=== PATIENT | male | born 2005 | race Caucasian/White ===

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

== ENCOUNTER 2024-01-20 21:47 | Emergency (ER) | payer BC, SELFPAY ==
[2024-01-20 21:48] VITALS: BP 112/70; PULSE 78; RESP 16; TEMP 35; O2SAT 96; BMI 28.0
--- NOTE | 2024-01-20 22:22 | EKG12_ITS ---
Test Reason : NAUSEA/VOMITING Blood Pressure : / mmHG Vent. Rate : 068 BPM Atrial Rate : 068 BPM P-R Int : 158 ms QRS Dur : 100 ms QT Int : 350 ms P-R-T Axes : 011 086 001 degrees QTc Int : 372 ms Sinus rhythm with marked sinus arrhythmia Otherwise normal ECG Confirmed by Jose Rao ([id number]), department editor HILARIO SAENZ ([id number]) on 01/22/2024 2:20:05 PM Referred By: POLI Confirmed By:Jose Rao
--- NOTE | 2024-01-20 23:18 | EX.ED.DYSGE1 ---
HPI History of Present Illness Chief Complaint: Nausea/Vomiting Informant: patient, family and friend Narrative Narrative: 18-year-old male states he has had 3 bouts daily of loose nonbloody nonmelanotic diarrhea for the past 2 weeks without any other symptoms. Not watery. No recent travel out of the area over the country. No suspicious food intake. Today, for about the latter half of the day, he has had some periumbilical abdominal aching and vomiting occasionally, basically whenever he tries to eat or drink something. Tonight he was vomiting hard, and he got lightheaded and passed out right afterwards. He then retirement came around and lost consciousness again, and then he came around and has felt better ever since he felt prodromal lightheadedness right after vomiting and no other symptoms such as headache, chest pain, dyspnea, severe abdominal pain. He states right now his abdominal pain is not there. Mom states she is a nurse. She checked his pulse after she got to him which was tender 20 minutes after the episode which was witnessed by girlfriend, and she states his pulse was 72 and his systolic blood pressure was in the 130s. [facility] Medical History (Updated 01/21/24 @ 00:[address] Zbigniew Albright MD) Anxiety Bipolar disorder Smoker ADHD History of anxiety History of depression Home Medications ?Medication ?Instructions ?Recorded ?Last Taken ?Type cetirizine 10 mg capsule (Zyrtec) 10 mg PO DAILY PRN allergy symptoms 08/16/17 08/16/17 History \ aripiprazole 5 mg tablet 2.5 mg PO DAILY 04/16/19 Unknown History atomoxetine 40 mg capsule 60 mg PO DAILY 04/16/19 Unknown History fluoxetine 10 mg tablet 20 mg PO DAILY 04/16/19 Unknown History bupropion HCl 100 mg tablet 100 mg PO DAILY 01/20/24 Unknown History divalproex 250 mg tablet,extended 750 mg PO QHS 01/20/24 Unknown History release 24 hr (Depakote ER) dicyclomine 10 mg capsule 20 mg (2 x 10 mg) PO Q6H PRN PRN 01/21/24 Unknown Rx abdominal discomfort #16 CAPSULES ondansetron 8 mg disintegrating 8 mg PO Q8H PRN nausea and 01/21/24 Unknown Rx tablet vomiting #15 tabs Allergy/AdvReac Type Severity Reaction Status Date / Time trimethoprim Allergy Hives Verified 01/20/24 21:47 Social History Smoking Status: Current every day smoker tobacco type: e-cigarettes ROS ROS ED Constitutional Constitutional ED: Denies chills or fever(s) Eyes Eyes: Denies change in vision or diplopia ENT ENT ED: Denies rhinorrhea or sore throat Cardiovascular Cardiovascular: Reports lightheadedness and syncope; Denies chest pain or palpitations Respiratory/Chest Respiratory/Chest: Denies cough or dyspnea Gastrointestinal Gastrointestinal: Reports abdominal pain, diarrhea, nausea and vomiting; Denies hematochezia or melena Genitourinary Genitourinary ED: Denies dysuria or hematuria Musculoskeletal Musculoskeletal: Denies back pain or neck pain Integumentary Denies abscess or rash Neurologic Neurologic: Denies headache(s), paresthesias or weakness Psychiatric Psychiatric: Denies suicidal thoughts EXAM Physical Exam Const Vital Signs: 01/20/24 21:48 Temperature 95 F L Temperature Source Temporal Pulse Rate 78 Respiratory Rate 16 Blood Pressure 112/70 Blood Pressure Mean 84 Pulse Ox 96 Oxygen Delivery Method Room Air Positive well nourished and well developed General Appearance ED: well developed and NAD HEENT Reports moist mucous membranes normocephalic and atraumatic Eyes PERRL and EOMs intact bilaterally Neck full ROM and supple Chest Wall inspection of chest normal and palpation of chest normal Resp normal respiratory effort and clear to auscultation bilaterally Cardio regular rate, regular rhythm and no murmurs Rate: Negative for tachycardic GI non-tender and non-distended GI Narrative: Benign exam Auscultation: normoactive bowel sounds Palpation: soft Back/Spine no CVA tenderness General Back: other FROM Extremity normal to inspection General Extremety ED: Negative for edema, pulses abnormal or tenderness General Extremity: Negative for edema or pulses abnormal Neuro oriented x3, CN's II-XII intact bilaterally and no sensory deficits noted Sensorium / Orientation: awake and alert Motor Exam: strength 5/5 throughout Skin no rashes or lesions noted and no wounds MDM MDM MDM Narrative Medical decision making narrative: I performed an EKG given his syncopal episode, it is normal, but I suspect this was a vasovagal mechanism for syncope based on him vomiting very hard just before this occurred. They are in agreement with that logic. I did some labs and give him some IV fluids and IV Zofran given his recent symptoms. After IV fluids and Zofran and dicyclomine patient is feeling much better is asymptomatic, soda bilirubin is 1.2 with read of his labs are normal. There is no old labs for comparison. Provided a bedside ultrasound, I see no evidence of any cholelithiasis, gallbladder wall thickening, or pericholecystic fluid. Negative sonographic Weathers's. They are comfortable exam. Stable for discharge, he is tolerating oral fluids, will give him a prescription for Zofran and dicyclomine to use as needed, suspect this is viral, we discussed reasons to return to the ER they are comfortable with that plan. Lab Data Attestation: I reviewed the patient's lab results. Labs: Laboratory Results - last 24 hr 01/20/24 23:35 WBC 11.6 H RBC 5.50 Hgb 16.4 Hct 47.6 MCV 86.5 MCH 29.8 MCHC 34.5 RDW Std Deviation 37.2 RDW Coeff of Amanda 11.8 Plt Count 285 MPV 9.6 Immature Gran % (Auto) 0.300 Neut % (Auto) 81.7 H Lymph % (Auto) 10.6 L Overton % (Auto) 5.7 Eos % (Auto) 1.4 Baso % (Auto) 0.3 Absolute Neuts (auto) 9.5 H Absolute Lymphs (auto) 1.23 Nucleated RBC % 0 Sodium 139 Potassium 3.8 Chloride 107 Carbon Dioxide 27.0 Anion Gap 5 BUN 12 Creatinine 1.04 Estim Creat Clear Calc 139.95 Est GFR (MDRD) Af Amer 118 Est GFR (MDRD) Non-Af 98 BUN/Creatinine Ratio 11.5 Glucose 93 Calcium 9.2 Total Bilirubin 1.20 H AST 16 ALT 27 Alkaline Phosphatase 64 Total Protein 7.7 Albumin 4.2 Globulin 3.5 Albumin/Globulin Ratio 1.2 Rhythm Strip Rhythm Strip: Sinus Rhythm Rate: 65 Ectopy: None EKG Initial EKG: Attestation: I personally reviewed and interpreted this EKG as follows: Interpretation: Sinus Rhythm and No Acute Injury Pattern Comments: Normal EKG no AV block. Prior EKG tracings: not available for review Prior: No Prior Discharge Plan Triage Chief Complaint: Nausea/Vomiting ED Provider: Zbigniew Albright Dx/Rx/DC Orders Clinical Impression: Nausea vomiting and diarrhea, Abdominal pain, periumbilic, Vasovagal syncope Instructions: Viral Gastroenteritis, ED Diet Vomiting Diarrhea, ED Fainting, Vagal Reaction Prescriptions: New dicyclomine 10 mg capsule 20 mg PO Q6H PRN PRN (Reason: abdominal discomfort) Qty: 16 0RF ondansetron 8 mg tablet,disintegrating 8 mg PO Q8H PRN (Reason: nausea and vomiting) Qty: 15 0RF No Action Zyrtec 10 MG capsule 10 mg PO DAILY PRN (Reason: allergy symptoms) fluoxetine 10 MG tablet 20 mg PO DAILY Patient Comments: 1/2 TABLET EVERY MORNING FOR 1WK THEN 1 TAB EVERY AM FOR 1 WK THEN 2 TABS EVERY AM atomoxetine 40 MG capsule 60 mg PO DAILY Patient Comments: TAKE 1 CAPSULE BY MOUTH EVERY DAY aripiprazole 5 MG tablet 2.5 mg PO DAILY divalproex [Depakote ER] 250 mg tablet extended release 24 hr 750 mg PO QHS bupropion HCl 100 mg tablet 100 mg PO DAILY Primary Care Provider: Justin Winkler Referrals: Justin Winkler, [Primary Care Provider] - 3-5 Days if not improving Print Language: Upper Sorbian Disposition Disposition: Home, Self Care
[2024-01-20] MEDS: 0.9% Normal Saline (1000mL) 1,000 ML 999 ML IV (23:35)
[2024-01-20] MEDS: Ondansetron 4 MG/2 ML Vial IV (23:39)
[2024-01-20] MEDS: Dicyclomine 10 MG Capsule 20 MG PO (23:39)
[2024-01-20 23:41] LABS: Absolute Lymphocyte Count 1.23 X10^3/uL (0.83-4.51); Absolute Neutrophil Count 9.5 X10^3/uL (2.0-7.7); Basophil# 0.03 X10^3/uL; Basophil% 0.3 % (0-1); Eosinophil# 0.16 X10^3/uL; Eosinophils% 1.4 % (0-5); Hematocrit 47.6 % (40-54); Hemoglobin 16.4 g/dL (13.0-16.5); Lymphocyte # 1.23 X10^3/ul (0.83-4.51); Lymphocyte % 10.6 % (19-41); Mean Corp Hgb Conc 34.5 g/dL (32-36); Mean Corpuscular Hgb 29.8 pg (27.0-32.0); Mean Corpuscular Volume 86.5 fL (80-94); Mean Platelet Vol. 9.6 fl (6.2-12.0); Monocyte# 0.66 X10^3/uL; Monocyte% 5.7 % (0-10); NRBC Flagged by Analyzer 0 % (0-5); Neutrophil % 81.7 % (47-70); Platelet Count 285 K/mm3 (150-450); RBC Distribution Width CV 11.8 % (11.6-14.6); RBC Distribution Width SD 37.2 fl (35.1-43.9); White Blood Count 11.6 K/mm3 (4.4-11.0)
[2024-01-20 23:58] LABS: ALB/GLOB Ratio 1.2 RATIO (0.9-2.4); AST(SGOT) 16 U/L (15-37); Alanine Aminotransfer ALT/SGPT 27 U/L (16-61); Albumin, Serum 4.2 g/dL (3.2-5.0); Alkaline Phosphatase 64 U/L (45-117); Anion Gap 5 (5-15); BUN 12 mg/dL (7-18); BUN/Creat Ratio 11.5 RATIO (10-20); Calcium,Total 9.2 mg/dL (8.5-10.1); Chloride 107 mmol/L (98-107); Creatinine, Serum 1.04 mg/dL (0.70-1.30); EST Glomerular Filtration Rate 98 mL/min (>60); Est Glom Filt Rate - Afr Amer 118 mL/min (>60); Estimated Creatinine Clearance 139.95 ml/min; Globulin 3.5 g/dL (2.2-4.2); Glucose 93 mg/dL (74-106); Potassium 3.8 mmol/L (3.5-5.1); Protein, Total 7.7 g/dL (6.4-8.2); Sodium Level 139 mmol/L (136-145)
== END 2024-01-21 00:41 | disposition home or self-care (01) ==
PROVIDERS: Emergency Provider Emergency Medicine; PCP Student in an Organized Health Care Education/Training Program; Visit Provider Emergency Medicine
DX: R11.2 Nausea with vomiting, unspecified (principal); R55 Syncope and collapse; R19.7 Diarrhea, unspecified; R10.33 Periumbilical pain; F17.290 Nicotine dependence, other tobacco product, uncomplicated; Z79.899 Other long term (current) drug therapy
CPT/HCPCS: 80053; 85025; 93005; 99282; A4216; J2405

== ENCOUNTER → 2024-02-23 | Outpatient (CLI) | payer BC, SELFPAY ==
[2024-02-23 16:35] LABS: Valproic Acid (Depakene) Level 82 ug/mL (50-100)
== END | disposition home or self-care (01) ==
LOC: LABSPEC 15:58
PROVIDERS: PCP Student in an Organized Health Care Education/Training Program; Referring Provider Psychiatry & Neurology Child & Adolescent Psychiatry; Visit Provider Psychiatry & Neurology Child & Adolescent Psychiatry
DX: Z79.899 Other long term (current) drug therapy (principal)
CPT/HCPCS: 80164

== ENCOUNTER 2025-01-02 21:01 | Emergency (ER) | payer BC, SELFPAY ==
[2025-01-02 21:02] VITALS: BP 96/46; PULSE 110; RESP 18; TEMP 36.8; O2SAT 99; BMI 28.6
--- OUTSIDE RECORDS SUMMARY | 2025-01-02 22:21 | XMS RPT_ITS | CCD ---
Author Organization [facility] Care Team Providers Care Cost Clerk Name Role Phone Justin Lowe DO Primary Care Provider [phone] Justin Lowe Primary Care Unavailable Zbigniew Albright Attending Unavailable Annette Mcmullen Attending Unavailable Annette Mcmullen Referring Unavailable Justin Lowe Primary Care Unavailable Justin Lowe DO Primary Care Provider [phone] MAN BELCEHR Attending Unavailable JUSTIN LOWE Primary Care Unavailable Allergies Allergy Classification Reported Allergen(s) Allergy Type Date of Onset Reaction(s) Facility (12 sources) Trimethoprim; Translations: [TRIMETHOPRIM] Drug Allergy 02-23-2006 [facility] Work Phone: (1 source) Trimethoprim Drug Allergy 01-20-2024 [facility] Repository Medications Current Medications Medication Drug Class(es) Dates Sig (Normalized) Sig (Original) buPROPion hydrochloride 100 mg oral tablet (1 source) Aminoketone Start: 01-20-2024 take 1 tablet by mouth once daily buPROPion (WELLBUTRIN) 100 mg tablet Take 100 mg by mouth once daily. 01/20/2024 Active cephalexin 500 mg oral capsule (1 source) Cephalosporin Antibacterial Start: 07-18-2022 End: 07-28-2022 take 1 capsule by mouth three times daily cephALEXin (KEFLEX) 500 mg capsule Indications: Ingrown toenail Take 1 capsule by mouth three times daily for 10 days. 30 capsule 0 07/18/2022 07/28/2022 Active Comment on above: Take 1 capsule by [facility] three times daily for 10 days. Garlic preparation (9 sources) Non-Standardized Food Allergenic Extract GARLIC ORAL Take by mouth. Active GARLIC ORAL Take by mouth. 0 Active Comment on above: Take by mouth. levocetirizine (9 sources) Histamine-1 Receptor Antagonist levocetirizine dihyd rochloride (XYZAL ORAL) Take by mouth. Active levocetirizine d ihydrochloride (XYZAL ORAL) Take by mouth. 0 Active Comment on above: Take by mouth. mupirocin 0.02 mg/mg topical ointment (1 source) RNA Synthetase Inhibitor Antibacterial Start: 07-18-19 End: 07-28-19 23 mupirocin (BACTROBAN) 2 % ointment Indications: Ingrown toenail Apply to affected area three times daily for 10 days. 22 g 0 07/18/2022 07/28/2022 Active Comment on above: Apply to affected ar ea three times daily for 10 days. therapeutic multivitamin tablet (10 sources) Start: 06-29-19 13 take 1 tablet by mouth once daily therapeutic multivitamin tablet Take 1 tablet by mouth once daily. 0 06/29/2012 Active Comment on above: Take 1 tablet by portia th once daily. 24 hr divalproex sodium 500 mg extended release oral tablet (11 sources) Mood Stabilizer, Anti-epileptic Agent Start: 04-19-20 24 take 1 tablet by mouth once daily divalproex ER (DEPAKOTE ER) 250 mg 24 hr tablet Indications: Bipolar affective disorder, remission status unspecified (HCC) Take 1 tablet by mouth once daily. Take with 500 mg tablet 04/19/2024 Active Start: 04-19-2024 take 1 tablet by portia th once daily divalproex ER (DEPAKOTE ER) 500 mg 24 hr tablet Take 1 tablet by mouth once daily. 04/19/2024 Active Start: 04-19-2024 End: 04-19-2024 take 1 tablet by mouth twice daily divalproex ER (DEPAKOTE ER) 500 mg 24 hr tablet Take 1 tablet by mouth two times a day. 04/19/2024 04/19/2024 Discontinued (Adjust Sig - Block E-Cancel) End: 04-19-2024 take 1 tablet by mouth twice daily divalproex ER (DEPAKOTE ER) 250 mg 24 hr tablet Take 250 mg by mouth twice daily. 04/19/2024 Discontinued (Adjust Sig - Block E-Cancel) Comment on above: Take 250 mg by mouth twice daily. Completed/Discontinued Medications Medication Drug Class(es) Dates Sig (Normalized) Sig (Original) ARIPiprazole 5 mg oral tablet (10 sources) Atypical Antipsychotic Start: 9 End: 4 take 7.5 mg by mouth once daily ARIPiprazole (ABILIFY) 5 mg tablet Take 7.5 mg by mouth once daily. 0 10/31/2018 04/19/2024 Discontinued Comment on above: Take 7.5 mg by mouth once daily. atomoxetine 40 mg oral capsule (1 source) Norepinephrine Reuptake Inhibitor Start: 9 End: 1 take 1 capsule by mouth once daily atomoxetine (STRATTERA) 40 mg capsule Take 40 mg by mouth once daily. 0 10/31/2018 01/20/2021 Discontinued (Other) Cetirizine (1 source) Histamine-1 Receptor Antagonist End: 1 CETIRIZINE HCL (ZYRTEC ORAL) Take by mouth. 01/20/2021 Discontinued 24 hr dexmethylphenidate hydrochloride 10 mg extended release oral capsule (1 source) Central Nervous System Stimulant Start: 0 End: 1 take 1 capsule by mouth once daily dexmethylphenidate (FOCALIN XR) 10 mg MP50 Capsule ER Take 1 capsule by mouth once daily. 03/24/2020 01/20/2021 Discontinued FLUoxetine 20 mg oral tablet (1 source) Serotonin Reuptake Inhibitor Start: 9 End: 1 take 1 tablet by mouth once daily FLUoxetine HCl 20 mg tablet Take 20 mg by mouth once daily. 0 10/31/2018 01/20/2021 Discontinued predniSONE 10 mg oral tablet (6 sources) Start: 2 End: 4 predniSONE (DELTASONE) 10 mg tablet Take 4 tabs daily for 3 days, then 2 tabs daily for 3 days, then 1 tab daily for 3 days with food. 21 tablet 01/10/2022 04/19/2024 Discontinued Comment on above: Take 4 tabs daily fo r 3 days, then 2 tabs daily for 3 days, then 1 tab daily for 3 days with food. sertraline 50 mg oral tablet (1 source) Serotonin Reuptake Inhibitor Start: 0 End: 1 take 1 tablet by mouth once daily sertraline (ZOLOFT) 50 mg tablet Take 1 tablet by mouth once daily. 03/24/2020 01/20/2021 Discontinued Problems Active Problems Problem Classification Problem Date Documented Date Episodic/Chronic Allergic reactions (1 source) Contact dermatitis due to poison yuniel; Translations: [Allergic contact dermatitis due to plants, except food] Episodic Attention-deficit, conduct, and disruptive behavior disorders (10 sources) Attention deficit hyperactivity disorder; Translations: [Attention-deficit hyperactivity disorder, unspecified type] Onset: 01-14-2014 01-14-2014 Chronic Disorders usually diagnosed in infancy, childhood, or adolescence (2 sources) Separation anxiety; Translations: [Separation anxiety disorder of childhood] Onset: 04-19-2024 04-19-2024 Chronic Immunizations and screening for infectious disease (3 sources) Patient encounter status; Translations: [Encounter for immunization] Onset: 09-16-2023 Episodic Mood disorders (2 sources) Bipolar disorder; Translations: [Bipolar disorder, unspecified] Onset: 04-19-2024 04-19-2024 Chronic Nausea and vomiting (1 source) Nausea with vomiting, unspecified; Translations: [Nausea with vomiting, unspecified] Onset: 02-08-2024 Episodic Open wounds of extremities (1 source) Open wound of toe; Translations: [Unspecified open wound of unspecified toe(s) without damage to nail, initial encounter] Episodic Open wounds of head; neck; and trunk (2 sources) Laceration without foreign body of oral cavity, initial encounter; Translations: [Laceration without foreign body of oral cavity, initial encounter] Onset: 09-16-2023 Episodic Other non-traumatic joint disorders (1 source) Pain of left wrist; Translations: [Pain in left wrist] 04-23-2021 Episodic Other nutritional; endocrine; and metabolic disorders (1 source) Childhood obesity; Translations: [Obesity, unspecified] Chronic Other skin disorders (1 source) Ingrowing toenail; Translations: [Ingrowing nail] Episodic Other skin disorders (1 source) Ingrowing nail of toe of right foot; Translations: [Ingrowing nail] Episodic Other upper respiratory disease (10 sources) Allergic rhinitis; Translations: [Allergic rhinitis, unspecified] Onset: 02-03-2012 02-03-2012 Chronic Superficial injury; contusion (2 sources) Contusion of other part of head, initial encounter; Translations: [Contusion of other part of head, initial encounter] Onset: 09-16-2023 Episodic Past or Other Problems Problem Classification Problem Date Documented Da te Episodic/Chronic Other lower respiratory disease (10 sources) Cough; Translations: [Cough] Onset: 10-14-2006 10-14-2006 Episodic Other skin disorders (10 sources) Keratosis pilaris; Translations: [Other specified epidermal thickening] Onset: 02-03-2012 02-03-2012 Episodic Results Test Name Value Interpretation Reference Range Facility OV 04-19-2024 [facility] Office Visit (FAMPWS ) NORIS MIDDLETON ([id number]) 3 M Date Time Provider Department 04/19/24 2:40 PM [facility] During your visit today, we recorded the following information about you: Pulse Respiration Blood pressure Weight 65/minute 14/minute 116/63 98 kg Man Belcher APRN.PLASMA 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 04/19/2024 2:56 PM Signed Chief Complaint Patient presents with: Follow Up: Discuss medication HPI Noris Middleton is a 18 year old male who presents here today for Above Complaints.. Patient presents for separation anxiety from his girlfriend. Patient's mom and gf in attendance of appt. Mom reports patient was in [facility] in [place] and since then he does not want to be away at home. Patient refuses to stay anywhere but home and has lost a job because of it. Mom reports job was with his dad and stepdad and even then he would not stay away from home. Will only stay away from home if his gf is with him. Patient reports if he has to be away he freaks out and gets angry and yells. Past medical history, appointments, medications, allergies reviewed. Previous Medical History PAST MEDICAL HISTORY Diagnosis Date ADHD (attention deficit hyperactivity disorder) Colorblindness Generalized anxiety disorder Keratosis pilaris Major depressive disorder Dr. Mcmullen at [facility] Seasonal allergies Previous Surgical History PAST SURGICAL HISTORY Procedure Laterality Date ADENOIDECTOMY PRIMARY Adenoidectomy, PE tube L ear MYRINGOTOMY ASPIRAND/EUSTACHIAN TUBE NFLTJ ANES 08/2006 Myringotomy/tubes TONSILLECTOMY PRIMARY/SECONDARY Family History FAMILY HISTORY Problem Relation Age of Onset Allergies Mother Headache Father migraines other (Other) Father depression Allergies Maternal Grandmother GI Maternal Grandmother other (Other) Maternal Grandmother sarcoidosis Lipids Maternal Grandfather Allergies Maternal Grandfather Diabetes Paternal Grandfather Hypertension Paternal Grandmother Lipids Paternal Grandmother Allergies Maternal Uncle Asthma Other great, great aunt Patient Allergies ALLERGIES Allergen Reactions Trimethoprim Hives Current Medications Current Outpatient Medications on File Prior to Visit Medication Sig buPROPion (WELLBUTRIN) 100 mg tablet Take 100 mg by mouth once daily. divalproex ER (DEPAKOTE ER) 250 mg 24 hr tablet Take 250 mg by mouth twice daily. levocetirizine dihydrochloride (XYZAL ORAL) Take by mouth. GARLIC ORAL Take by mouth. therapeutic multivitamin tablet Take 1 tablet by mouth once daily. predniSONE (DELTASONE) 10 mg tablet Take 4 tabs daily for 3 days, then 2 tabs daily for 3 days, then 1 tab daily for 3 days with food. (Patient not taking: Reported on 07/18/2022) ARIPiprazole (ABILIFY) 5 mg tablet Take 7.5 mg by mouth once daily. (Patient not taking: No sig reported) No current facility-administered medications on file prior to visit. Social History Social History Tobacco Use Smoking status: Never Smokeless tobacco: Never Tobacco comments: step-father smokes outside only. Substance Use Topics Alcohol use: Never Drug use: Never Review of Symptoms REVIEW OF SYSTEMS SEE HPI EXAM: BP 116/63 Pulse 65 Resp 14 Wt 98 kg (216 lb) General Appearance: Well appearing, alert, in no acute distress, well-hydrated, well nourished.. Health Maintenance List Meningococcal B Vaccine: Consider Based On Risk(1 of 2 - Patient Seeks Protection) Never done Depression Screening Never done Anxiety Screening Never done Hepatitis C Screening Never done HIV Screening Never done Influenza Vaccine(1) due on 02/18/2024 Covid-19 Vaccine(2023- season) Never done DTaP,Tdap,Td Vaccine(8 - Td or Tdap) due on 09/15/2033 Hepatitis B Vaccine Completed HPV Vaccine Completed Meningococcal Conjugate Vaccine Completed ASSESSMENT/PLAN: 1. Bipolar affective disorder, remission status unspecified (HCC) - ICD9: 296.80, ICD10: F31.9 (primary diagnosis) - Continue wellbutrin and depakote -Make an appt with psychiatry for med management as pediatric psych will no longer see patient due to age. - DIVALPROEX ER 250 MG TABLET,EXTENDED RELEASE 24 HR 2. Separation anxiety - ICD9: 309.21, ICD10: F93.0 -Make an appt with psychiatry for med management as pediatric psych will no longer see patient due to age. Man Belcher APRN.Man Wise APRN.CNP 04/19/2024 2:54 PM Signed [place] [facility] Medication Management [facility] [address] [place] [address] [facility] [address] [place] [address] [facility] [address] [place] [address] [facility] [address] [place] [address] (more content not included)... Normal [facility] Valproic Acid (Depakene) Lev rony 02-23-2024 VALPROIC ACID 82 ug/mL Normal 50-100 [facility] Comment on above: Performed By: #### L 501.8100 #### [facility] [address] [place] [address], [facility] 12 Lead EKGon 01-20-2024 12 Lead EKG [facility] [address] [place] [address] 12 Lead EKG 01/20/24 2229 MR#: [id number] Acct: [id number] Name: NORIS IMDDLETON Ute Modi Rep #: [id number] : 2005 18 From: Jose Rao MD Attending Dr: Status: DEP ER Ordering Dr: Zbigniew Albright MD Date: 01/20/24 Location: ED Sex: M C Admitted: Test Reason : NAUSEA/VOMITING Blood Pressure : / mmHG Vent. Rate : 068 BPM Atrial Rate : 068 BPM P-R Int : 158 ms QRS Dur : 100 ms QT Int : 350 ms P-R-T Axes : 011 086 001 degrees QTc Int : 372 ms Sinus rhythm with marked sinus arrhythmia Otherwise normal ECG Confirmed by Jose Rao ([id number]), videotape editor HILARIO SAENZ ([id number]) on 01/22/2024 2:20:05 PM Referred By: POLI Confirmed By:Jose Rao 01/22/24 1420 Date Jose Rao MD CC: Dr. Zbigniew Albright MD; Dr. Justin Lowe, DO Signed Normal [facility] CBC W/Diff, Automatedon 08 Absolute Lymph 1.23 X10 3/uL Normal 0.83-4.51 [facility] Comment on above: Performed By: #### L 100.0100, L500.4050 #### [facility] [address] [place], [address] Absolute Neut 9.5 X10 3/uL High 2.0-7.7 [facility] Comment on above: Performed By: #### L 100.0100, L500.4050 #### [facility] [address] [place], [address] Basophils/100 WBC (Bld) 0.3 % Normal 0-1 [facility] Comment on above: Performed By: #### L 100.0100, L500.4050 #### [facility] [address] [place], [address] Eosinophils/100 WBC (Bld) 1.4 % Normal 0-5 [facility] Comment on above: Performed By: #### L 100.0100, L500.4050 #### [facility] [address] [place], [address] Erythrocyte distribution width (RBC) [Ratio] 11.8 % Normal 11.6-14.6 [facility] Comment on above: Performed By: #### L 100.0100, L500.4050 #### [facility] [address] [place], [address] Hematocrit (Bld) [Volume fraction] 47.6 % Normal 40-54 [facility] Comment on above: Performed By: #### L 100.0100, L500.4050 #### [facility] [address] [place], [address] Hemoglobin (Bld) [Mass/Vol] 16.4 g/dL Normal 13.0-16.5 [facility] Comment on above: Performed By: #### L 100.0100, L500.4050 #### [facility] [address] [place], [address] IG% 0.300 Normal 0.0-0.9 [facility] Comment on above: Result Comment: IG% - Immature Granulocytes (promyelocytes, myelocytes and metamyelocytes) > 1% indicates that a LEFT SHIFT is Present. Performed By: #### L 100.0100, L500.4050 #### [facility] [address] [place], [address] Lymphocytes/100 WBC (Bld) 10.6 % Low 19-41 [facility] Comment on above: Performed By: #### L 100.0100, L500.4050 #### [facility] [address] [place], [address] MCH (RBC) [Entitic mass] 29.8 pg Normal 27.0-32.0 [facility] Comment on above: Performed By: #### L 100.0100, L500.4050 #### [facility] [address] [place], [address] MCHC (RBC) [Mass/Vol] 34.5 g/dL Normal 32-36 [facility] Comment on above: Performed By: #### L 100.0100, L500.4050 #### [facility] [address] [place], [address] MCV (RBC) [Entitic vol] 86.5 fL Normal 80-94 [facility] Comment on above: Performed By: #### L 100.0100, L500.4050 #### [facility] [address] [place], [address] Monocytes/100 WBC (Bld) 5.7 % Normal 0-10 [facility] Comment on above: Performed By: #### L 100.0100, L500.4050 #### [facility] [address] [place], [address] Neutrophils/100 WBC (Bld) 81.7 % High 47-70 [facility] Comment on above: Performed By: #### L 100.0100, L500.4050 #### [facility] [address] [place], [address] Nucleated RBC (Bld) [#/Vol] 0 10*3/uL Normal 0-5 [facility] Comment on above: Performed By: #### L 100.0100, L500.4050 #### [facility] [address] [place], [address] Platelet mean volume (Bld) [Entitic vol] 9.6 fL Normal 6.2-12.0 [facility] Comment on above: Performed By: #### L 100.0100, L500.4050 #### [facility] [address] [place], [address] Platelets (Bld) [#/Vol] 285 10*3/uL Normal 150-450 [facility] Comment on above: Performed By: #### L 100.0100, [id number] #### [facility] [address] [place], [address] RBC (Bld) [#/Vol] 5.50 10*6/uL Normal 4.6-6.2 [facility] Comment on above: Performed By: #### L 100.0100, [id number] #### [facility] [address] [place], [address] RDW SD 37.2 fl Normal 35.1-43.9 [facility] Comment on above: Performed By: #### L 100.0100, L500.4050 #### [facility] [address] [place], [address] WBC (Bld) [#/Vol] 11.6 10*3/uL High 4.4-11.0 [facility] Comment on above: Performed By: #### L 100.0100, L500.4050 #### [facility] [address] [place], [address] Comprehensive Metabolic Prof ilon 01-20-2024 Albumin [Mass/Vol] 4.2 g/dL Normal 3.2-5.0 [facility] Comment on above: Performed By: #### L 100.0100, L500.4050 #### [facility] [address] [place], [address] Albumin/Globulin [Mass ratio] 1.2 {ratio} Normal 0.9-2.4 [facility] Comment on above: Performed By: #### L 100.0100, L500.4050 #### [facility] [address] [place], [address] ALK P 64 U/L Normal 45-117 [facility] Comment on above: Performed By: #### L 100.0100, [id number] #### [facility] [address] [place], [address] ALT [Catalytic activity/Vol] 27 U/L Normal 16-61 [facility] Comment on above: Performed By: #### L 100.0100, L500.4050 #### [facility] [address] [place], [address] AST [Catalytic activity/Vol] 16 U/L Normal 15-37 [facility] Comment on above: Performed By: #### L 100.0100, [id number] #### [facility] [address] [place], [address] Bilirubin [Mass/Vol] 1.20 mg/dL High 0.20-1.00 [facility] Comment on above: Result Comment: For patients on eltrombopag therapy, use of Dimension Lester TBIL is not recommended. Performed By: #### L 100.0100, L500.4050 #### [facility] [address] [place], [address] BUN/CRE 11.5 RATIO Normal 10-20 [facility] Comment on above: Performed By: #### L 100.0100, L500.4050 #### [facility] [address] [place], [address] CA,Total 9.2 mg/dL Normal 8.5-10.1 [facility] Comment on above: Performed By: #### L 100.0100, [id number] #### [facility] [address] [place], [address] Chloride [Moles/Vol] 107 mmol/L Normal 98-107 [facility] Comment on above: Performed By: #### L 100.0100, L500.4050 #### [facility] [address] [place], [address] CO2 [Moles/Vol] 27.0 mmol/L Normal 21.0-32.0 [facility] Comment on above: Performed By: #### L 100.0100, L500.4050 #### [facility] [address] [place], [address] Creatinine [Mass/Vol] 1.04 mg/dL Normal 0.70-1.30 [facility] Comment on above: Result Comment: The validity of the calculated GFR GFRAA in patients over 70 years has not been determined. Clinical correlation is essential. Performed By: #### L 100.0100, L500.4050 #### [facility] [address] [place], [address] ECRCL 139.95 ml/min Normal [facility] Comment on above: Performed By: #### L 100.0100, L500.4050 #### [facility] [address] [place], [address] EST GFR - AA 118 mL/min Normal >60 [facility] Comment on above: Result Comment: Afri can [place] GFR Calc Performed By: #### L 100.0100, L500.4050 #### [facility] [address] [place], [address] GAP 5 Normal 5-15 [facility] Comment on above: Performed By: #### L 100.0100, L500.4050 #### [facility] [address] [place], [address] GFR/1.73 sq M.predicted among non-blacks MDRD (S/P/Bld) [Vol rate/Area] 98 mL/min/{1.73_m2} Normal >60 [facility] Comment on above: Result Comment: Non- GFR Calc Performed By: #### L 100.0100, L500.4050 #### [facility] [address] [place], [address] Globulin (S) [Mass/Vol] 3.5 g/dL Normal 2.2-4.2 [facility] Comment on above: Performed By: #### L 100.0100, L500.4050 #### [facility] [address] [place], [address] Glucose [Mass/Vol] 93 mg/dL Normal 74-106 [facility] Comment on above: Performed By: #### L 100.0100, L500.4050 #### [facility] [address] [place], [address] Potassium [Moles/Vol] 3.8 mmol/L Normal 3.5-5.1 [facility] Comment on above: Performed By: #### L 100.0100, L500.4050 #### [facility] [address] [place], [address] Sodium [Moles/Vol] 139 mmol/L Normal 136-145 [facility] Comment on above: Performed By: #### L 100.0100, L500.4050 #### [facility] [address] [place], [address] T PROT 7.7 g/dL Normal 6.4-8.2 [facility] Comment on above: Performed By: #### L 100.0100, L500.4050 #### [facility] [address] [place], [address] Urea nitrogen [Mass/Vol] 12 mg/dL Normal 7-18 [facility] Comment on above: Performed By: #### L 100.0100, L500.4050 #### [facility] [address] [place], [address] Emergency Department Summary on 01-20-2024 Emergency Department Summary [facility] Medical Records Department [address] [place] [place] [address] Emergency Department Summary 01/20/24 MR#: [id number] Acct: [id number] Name: NORIS MIDDLETON Rep #: [id number] : 2005 18 From: Zbigniew Albright MD PCP: Dr. Justin Lowe, DO Status:REG ER Location: ED HPI History of Present Illness Chief Complaint: Nausea/Vomiting Informant: patient, family and friend Narrative Narrative: 18-year-old male states he has had 3 bouts daily of loose nonbloody nonmelanotic diarrhea for the past 2 weeks without any other symptoms. Not watery. No recent travel out of the area over the country. No suspicious food intake. Today, for about the latter half of the day, he has had some periumbilical abdominal aching and vomiting occasionally, basically whenever he tries to eat or drink something. Tonight he was vomiting hard, and he got lightheaded and passed out right afterwards. He then alf came around and lost consciousness again, and then he came around and has felt better ever since he felt prodromal lightheadedness right after vomiting and no other symptoms such as headache, chest pain, dyspnea, severe abdominal pain. He states right now his abdominal pain is not there. Mom states she is a nurse. She checked his pulse after she got to him which was tender 20 minutes after the episode which was witnessed by girlfriend, and she states his pulse was 72 and his systolic blood pressure was in the 130s. [facility] Medical History (Updated 01/21/24 @ 00:[address] Zbigniew Albright MD) Anxiety Bipolar disorder Smoker ADHD History of anxiety History of depression Home Medications ???Medication ???Instructions ???Recorded ???Last Taken ???Type cetirizine 10 mg capsule (Zyrtec) 10 mg PO DAILY PRN allergy symptoms 08/16/17 08/16/17 History aripiprazole 5 mg tablet 2.5 mg PO DAILY 04/16/19 Unknown History atomoxetine 40 mg capsule 60 mg PO DAILY 04/16/19 Unknown History fluoxetine 10 mg tablet 20 mg PO DAILY 04/16/19 Unknown History bupropion HCl 100 mg tablet 100 mg PO DAILY 01/20/24 Unknown History divalproex 250 mg tablet,extended 750 mg PO QHS 01/20/24 Unknown History release 24 hr (Depakote ER) dicyclomine 10 mg capsule 20 mg (2 x 10 mg) PO Q6H PRN PRN 01/21/24 Unknown Rx abdominal discomfort #16 CAPSULES ondansetron 8 mg disintegrating 8 mg PO Q8H PRN nausea and 01/21/24 Unknown Rx tablet vomiting #15 tabs Allergy/AdvReac Type Severity Reaction Status Date / Time trimethoprim Allergy Hives Verified 01/20/24 21:47 Social History Smoking Status: Current every day smoker tobacco type: e-cigarettes ROS ROS ED Constitutional Constitutional ED: Denies chills or fever(s) Eyes Eyes: Denies change in vision or diplopia ENT ENT ED: Denies rhinorrhea or sore throat Cardiovascular Cardiovascular: Reports lightheadedness and syncope; Denies chest pain or palpitations Respiratory/Chest Respiratory/Chest: Denies cough or dyspnea Gastrointestinal Gastrointestinal: Reports abdominal pain, diarrhea, nausea and vomiting; Denies hematochezia or melena Genitourinary Genitourinary ED: Denies dysuria or hematuria Musculoskeletal Musculoskeletal: Denies back pain or neck pain Integumentary Denies abscess or rash Neurologic Neurologic: Denies headache(s), paresthesias or weakness Psychiatric Psychiatric: Denies suicidal thoughts EXAM Physical Exam Const Vital Signs: 01/20/24 21:48 Temperature 95 F L Temperature Source Temporal Pulse Rate 78 Respiratory Rate 16 Blood Pressure 112/70 Blood Pressure Mean 84 Pulse Ox 96 Oxygen Delivery Method Room Air Positive well nourished and well developed General Appearance ED: well developed and NAD HEENT Reports moist mucous membranes normocephalic and atraumatic Eyes PERRL and EOMs intact bilaterally Neck full ROM and supple Chest Wall inspection of chest normal and palpation of chest normal Resp normal respiratory effort and clear to auscultation bilaterally Cardio regular rate, regular rhythm and no murmurs Rate: Negative for tachycardic GI non-tender and non-distended GI Narrative: Benign exam Auscultation: normoactive bowel sounds Palpation: soft Back/Spine no CVA tenderness General Back: other FROM Extremity normal to inspection General Extremety ED: Negative for edema, pulses abnormal or tenderness General Extremity: Negative for edema or pulses abnormal Neuro oriented x3, CN's II-XII intact bilaterally and no sensory deficits noted Sensorium / Orientation: awake and alert Motor Exam: strength 5/5 throughout Skin no rashes or lesions noted and no wounds MDM MDM MDM Narrative Medical decision making narrative: I performed an EKG gi (more content not included)... Normal [facility] CT 3D RECONSTRUCTIONon 09-15 CT 3D RECONSTRUCTION Interpreted By: Joseph Riley, STUDY: CT HEAD WO IV CONTRAST; CT FACIAL BONES WO IV CONTRAST; CT 3D RECONSTRUCTION; 09/16/2023 4:46 pm INDICATION: Signs/Symptoms:assaul t; Signs/Symptoms:batter y. COMPARISON: None. ACCESSION NUMBER(S): [id number]; [id number]; [id number] ORDERING CLINICIAN: JACKIE GALVEZ TECHNIQUE: Axial noncontrast CT images of the head with coronal and sagittal reformatted images. Axial noncontrast CT images of the facial bones with coronal and sagittal reformatted images. 3D facial reconstructions were created on an independent workstation and reviewed. FINDINGS: CT HEAD: BRAIN PARENCHYMA: No acute intraparenchymal hemorrhage or parenchymal evidence of acute large territory ischemic infarct. No mass-effect. Rico-white matter distinction is preserved. VENTRICLES and EXTRA-AXIAL SPACES: No acute extra-axial or intraventricular hemorrhage. No effacement of cerebral sulci. Ventricles and sulci are age-concordant. MASTOIDS: Well-aerated. CALVARIUM: No skull fracture. CT MAXILLOFACIAL SKELETON: FACIAL BONES: No acute facial bone fracture. The bony orbits are intact. ORBITS: The globes, extraocular muscles, and optic nerve sheath complexes are intact. No retrobulbar or subperiosteal hematoma. SOFT TISSUES: There is soft tissue swelling overlying the right aspect of the mandibular body with foci of soft tissue gas as well. PARANASAL SINUSES: No hemorrhage or air-fluid levels within the paranasal sinuses. Mild diffuse mucosal thickening in the ethmoid, maxillary, sphenoid sinuses with small amount of secretions noted in the right maxillary sinus. OTHER FINDINGS: There is a periapical cyst involving the left maxillary lateral incisor. IMPRESSION: CT HEAD: 1. No acute intracranial abnormality or calvarial fracture. CT MAXILLOFACIAL SKELETON: 1. No acute facial bone fracture. 2. Soft tissue swelling and foci of soft tissue gas overlying the body of the right body of the mandible representing contusion. Correlate for penetrating injury. MACRO: None. Signed by: Joseph Riley 09/16/2023 5:27 PM Dictation workstation: [id number] [facility] CT FACIAL BONES WO IV CONTRA STon 09-16-2023 CT FACIAL BONES WO IV CONTRAST Interpreted By: Joseph Riley, STUDY: CT HEAD WO IV CONTRAST; CT FACIAL BONES WO IV CONTRAST; CT 3D RECONSTRUCTION; 09/16/2023 4:46 pm INDICATION: Signs/Symptoms:assaul t; Signs/Symptoms:batter y. COMPARISON: None. ACCESSION NUMBER(S): [id number]; [id number]; [id number] ORDERING CLINICIAN: JACKIE GALVEZ TECHNIQUE: Axial noncontrast CT images of the head with coronal and sagittal reformatted images. Axial noncontrast CT images of the facial bones with coronal and sagittal reformatted images. 3D facial reconstructions were created on an independent workstation and reviewed. FINDINGS: CT HEAD: BRAIN PARENCHYMA: No acute intraparenchymal hemorrhage or parenchymal evidence of acute large territory ischemic infarct. No mass-effect. Rico-white matter distinction is preserved. VENTRICLES and EXTRA-AXIAL SPACES: No acute extra-axial or intraventricular hemorrhage. No effacement of cerebral sulci. Ventricles and sulci are age-concordant. MASTOIDS: Well-aerated. CALVARIUM: No skull fracture. CT MAXILLOFACIAL SKELETON: FACIAL BONES: No acute facial bone fracture. The bony orbits are intact. ORBITS: The globes, extraocular muscles, and optic nerve sheath complexes are intact. No retrobulbar or subperiosteal hematoma. SOFT TISSUES: There is soft tissue swelling overlying the right aspect of the mandibular body with foci of soft tissue gas as well. PARANASAL SINUSES: No hemorrhage or air-fluid levels within the paranasal sinuses. Mild diffuse mucosal thickening in the ethmoid, maxillary, sphenoid sinuses with small amount of secretions noted in the right maxillary sinus. OTHER FINDINGS: There is a periapical cyst involving the left maxillary lateral incisor. IMPRESSION: CT HEAD: 1. No acute intracranial abnormality or calvarial fracture. CT MAXILLOFACIAL SKELETON: 1. No acute facial bone fracture. 2. Soft tissue swelling and foci of soft tissue gas overlying the body of the right body of the mandible representing contusion. Correlate for penetrating injury. MACRO: None. Signed by: Joseph Riley 09/16/2023 5:27 PM Dictation workstation: [id number] [facility] CT HEAD WO IV CONTRASTon CT HEAD WO IV CONTRAST Interpreted By: Joseph Riley, STUDY: CT HEAD WO IV CONTRAST; CT FACIAL BONES WO IV CONTRAST; CT 3D RECONSTRUCTION; 09/16/2023 4:46 pm INDICATION: Signs/Symptoms:assaul t; Signs/Symptoms:batter y. COMPARISON: None. ACCESSION NUMBER(S): [id number]; [id number]; [id number] ORDERING CLINICIAN: JCAKIE GALVEZ TECHNIQUE: Axial noncontrast CT images of the head with coronal and sagittal reformatted images. Axial noncontrast CT images of the facial bones with coronal and sagittal reformatted images. 3D facial reconstructions were created on an independent workstation and reviewed. FINDINGS: CT HEAD: BRAIN PARENCHYMA: No acute intraparenchymal hemorrhage or parenchymal evidence of acute large territory ischemic infarct. No mass-effect. Rico-white matter distinction is preserved. VENTRICLES and EXTRA-AXIAL SPACES: No acute extra-axial or intraventricular hemorrhage. No effacement of cerebral sulci. Ventricles and sulci are age-concordant. MASTOIDS: Well-aerated. CALVARIUM: No skull fracture. CT MAXILLOFACIAL SKELETON: FACIAL BONES: No acute facial bone fracture. The bony orbits are intact. ORBITS: The globes, extraocular muscles, and optic nerve sheath complexes are intact. No retrobulbar or subperiosteal hematoma. SOFT TISSUES: There is soft tissue swelling overlying the right aspect of the mandibular body with foci of soft tissue gas as well. PARANASAL SINUSES: No hemorrhage or air-fluid levels within the paranasal sinuses. Mild diffuse mucosal thickening in the ethmoid, maxillary, sphenoid sinuses with small amount of secretions noted in the right maxillary sinus. OTHER FINDINGS: There is a periapical cyst involving the left maxillary lateral incisor. IMPRESSION: CT HEAD: 1. No acute intracranial abnormality or calvarial fracture. CT MAXILLOFACIAL SKELETON: 1. No acute facial bone fracture. 2. Soft tissue swelling and foci of soft tissue gas overlying the body of the right body of the mandible representing contusion. Correlate for penetrating injury. MACRO: None. Signed by: Joseph Riley 09/16/2023 5:27 PM Dictation workstation: [id number] [facility] Lipid Panel, [place] 05-05-2 021 Cholesterol [Mass/Vol] 155 mg/dL Normal <170 [facility] Reference Lab Comment on above: Performed By: #### L IPB, HBA1C #### [facility] Routine Lab [address] [place], [place] [address] Cholesterol in HDL [Mass/Vol] 33 mg/dL Low >45 [facility] Comment on above: Performed By: #### L IPB, HBA1C #### [facility] Routine Lab [address] [place], [place] [address] Cholesterol in LDL [Mass/Vol] 99 mg/dL Normal <110 [facility] Comment on above: Performed By: #### L IPB, HBA1C #### [facility] Routine Lab [address] [place], [place] [address] Cholesterol in VLDL [Mass/Vol] 23 mg/dL High <18 [facility] Comment on above: Performed By: #### L IPB, HBA1C #### [facility] Routine Lab [address] [place], [place] [address] Cholesterol non HDL [Mass/Vol] 122 mg/dL High <120 [facility] Comment on above: Performed By: #### L IPB, HBA1C #### [facility] Routine Lab [address] [place], [place] [address] LDL:HDL Ratio 3.00 High <2.42 [facility] Comment on above: Performed By: #### L IPB, HBA1C #### [facility] Routine Lab [address] [place], [place] [address] TC:HDL Ratio 4.70 High <3.76 [facility] Comment on above: Performed By: #### L IPB, HBA1C #### [facility] Routine Lab [address] [place], [place] [address] Triglyceride [Mass/Vol] 114 mg/dL High <90 [facility] Comment on above: Performed By: #### L IPB, HBA1C #### [facility] Routine Lab [address] [place], [place] [address] Hemoglobin A1con 05-04-2021 Glucose [Mass/Vol] 91 mg/dL Normal [facility] Reference Lab Comment on above: Performed By: #### L IPB, HBA1C #### [facility] Routine Lab [address] [place], [place] [address] HbA1c (Bld) [Mass fraction] 4.8 % Normal 4.3-5.6 [facility] Lab Comment on above: Performed By: #### L IPB, HBA1C #### [facility] Routine Lab [address], [place] [id number] Lipid Panel, Basicon 021 Fasting Time UN Normal [facility] Lab Comment on above: Performed By: #### L IPB, HBA1C #### [facility] Routine Lab [address], [place] [id number] XR Wrist - left 4 Viewson IMPRESSION: Normal radiographic appearance of the left wrist. 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 DIVISION OF RADIOLOGY * * *Final Report* * * DATE OF EXAM: Apr 23 2021 4:44PM WOX 5272 - XR WRIST 4V PA/LAT/OBL/SCAPH LT / PROCEDURE REASON: Left wrist pain * * * * Physician Interpretation * * * * TECHNIQUE: XR WRIST 4V PA/LAT/OBL/SCAPH LT - EXAM DATE: 04/23/2021 4:44 PM CLINICAL HISTORY: Left wrist pain COMPARISON: None RESULT: There is no fracture. Bone density is normal. Joint spaces are maintained. No soft tissue abnormality. DIVISION OF RADIOLOGY Provider, [facility] - 04/23/2021 * * *Final Report* * * DATE OF EXAM: Apr 23 2021 4:44PM WOX 5272 - XR WRIST 4V PA/LAT/OBL/SCAPH LT / PROCEDURE REASON: Left wrist pain * * * * Physician Interpretation * * * * TECHNIQUE: XR WRIST 4V PA/LAT/OBL/SCAPH LT - EXAM DATE: 04/23/2021 4:44 PM CLINICAL HISTORY: Left wrist pain COMPARISON: None RESULT: There is no fracture. Bone density is normal. Joint spaces are maintained. No soft tissue abnormality. IMPRESSION IMPRESSION: Normal radiographic appearance of the left wrist. 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 DIVISION OF RADIOLOGY * * *Final Report* * * DATE OF EXAM: Mar 30 2020 6:39PM WOX 5271 - XR WRIST 3V PA/LAT/OBL RT / PROCEDURE REASON: Wrist pain, acute, right * * * * Physician Interpretation * * * * TECHNIQUE: XR WRIST 3V PA/LAT/OBL RT - EXAM DATE: 03/30/2020 6:39 PM CLINICAL HISTORY: Wrist pain, acute, right COMPARISON: None FINDINGS: There is soft tissue swelling overlying the wrist. There is no fracture or dislocation or radiopaque foreign body. DIVISION OF RADIOLOGY Provider, Dougie Smith - 03/30/2020 * * *Final Report* * * DATE OF EXAM: Mar 30 2020 6:39PM WOX 5271 - XR WRIST 3V PA/LAT/OBL RT / PROCEDURE REASON: Wrist pain, acute, right * * * * Physician Interpretation * * * * TECHNIQUE: XR WRIST 3V PA/LAT/OBL RT - EXAM DATE: 03/30/2020 6:39 PM CLINICAL HISTORY: Wrist pain, acute, right COMPARISON: None FINDINGS: There is soft tissue swelling overlying the wrist. There is no fracture or dislocation or radiopaque foreign body. 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 Date/Time: Mar 30 2020 6:40P Dictated by : ELGIN LEI MD This examination was interpreted and the report reviewed and electronically signed by: ELGIN LEI MD on Mar 30 2020 6:40PM EST [facility] Radiology Study observation (narrative) [facility] XR Wrist - right PA and Late ral and ObliqueOrdered By: Ccf Provider on 03-30-2020 [facility] Glucose, Fastingon 9 Glucose [Mass/Vol] 73 mg/dL Low 74-99 [facility] Reference Lab Comment on above: Performed By: #### G LF, LIPB #### [facility] Routine Lab [address] [place], [place] [address] Lipid Panel, Basicon 019 Cholesterol [Mass/Vol] 155 mg/dL Normal <170 [facility] Lab Comment on above: Performed By: #### G LF, LIPB #### [facility] Routine Lab [address] [place], [place] [address] Cholesterol in HDL [Mass/Vol] 43 mg/dL Low >45 [facility] Lab Comment on above: Performed By: #### G LF, LIPB #### [facility] Routine Lab [address] [place], [place] [address] Cholesterol in LDL [Mass/Vol] 94 mg/dL Normal <110 [facility] Lab Comment on above: Performed By: #### G LF, LIPB #### [facility] Routine Lab [address] [place], [place] [address] Cholesterol in VLDL [Mass/Vol] 18 mg/dL High <18 [facility] Reference Lab Comment on above: Performed By: #### G LF, LIPB #### [facility] Routine Lab [address] [place], [place] [address] Cholesterol non HDL [Mass/Vol] 112 mg/dL Normal <120 [facility] Reference Lab Comment on above: Performed By: #### G LF, LIPB #### [facility] Routine Lab [address] [place], [place] [address] LDL:HDL Ratio 2.19 Normal <2.42 [facility] Reference Lab Comment on above: Performed By: #### G LF, LIPB #### [facility] Routine Lab [address] [place], [place] [address] TC:HDL Ratio 3.60 Normal <3.76 [facility] Reference Lab Comment on above: Performed By: #### G LF, LIPB #### [facility] Routine Lab [address] [place], [place] [address] Triglyceride [Mass/Vol] 90 mg/dL High <90 [facility] Lab Comment on above: Performed By: #### G LF, LIPB #### [facility] Routine Lab [address] [place], [place] [address] Fasting Time UN Normal [facility] Reference Lab Comment on above: Performed By: #### G LF, LIPB #### [facility] Routine Lab [address] [place], [place] [address] Glucose, Fastingon 9 Glucose [Mass/Vol] 76 mg/dL Normal 74-99 [facility] Reference Lab Comment on above: Performed By: #### G LF, LIPB #### [facility] Routine Lab [address] [place], [place] [address] Lipid Panel, Basicon 019 Cholesterol [Mass/Vol] 167 mg/dL Normal <170 [facility] Lab Comment on above: Performed By: #### G LF, LIPB #### [facility] Routine Lab [address] [place], [place] [address] Cholesterol in HDL [Mass/Vol] 52 mg/dL Normal >45 [facility] Reference Lab Comment on above: Performed By: #### G LF, LIPB #### [facility] Routine Lab [address] [place], [place] [address] Cholesterol in LDL [Mass/Vol] 100 mg/dL Normal <110 [facility] Reference Lab Comment on above: Performed By: #### G LF, LIPB #### [facility] Routine Lab [address] [place], [place] [address] Cholesterol in VLDL [Mass/Vol] 15 mg/dL Normal <18 [facility] Lab Comment on above: Performed By: #### G LF, LIPB #### [facility] Routine Lab [address] [place], [place] [address] Cholesterol non HDL [Mass/Vol] 115 mg/dL Normal <120 [facility] Reference Lab Comment on above: Performed By: #### G LF, LIPB #### [facility] Routine Lab [address] [place] [address] LDL:HDL Ratio 1.92 Normal <2.42 [facility] Reference Lab Comment on above: Performed By: #### G LF, LIPB #### [facility] Routine Lab [address] [place] [address] TC:HDL Ratio 3.21 Normal <3.76 [facility] Reference Lab Comment on above: Performed By: #### G LF, LIPB #### [facility] Routine Lab [address] [place], [place] [address] Triglyceride [Mass/Vol] 73 mg/dL Normal <90 [facility] Reference Lab Comment on above: Performed By: #### G LF, LIPB #### [facility] Routine Lab [address] [place], [place] [address] Fasting Time UN Normal [facility] Reference Lab Comment on above: Performed By: #### G LF, LIPB #### [facility] Routine Lab [address] [place], [place] [address] Vital Signs Date Time Vital Sign Value Performing Clinician Johnny rey 04-19-2024 14:35-0400 Body weight 97.98 kg Man Belcher [employer] ARTIST INSTRUCTOR.PLASMA 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 Work Phone: [facility] 04-19-2024 14:35-0400 Diastolic blood pressure 63 mm[Hg] Man Belcher [employer] ARTIST INSTRUCTOR.PLASMA 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 Work Phone: [facility] 04-19-2024 14:35-0400 Heart rate 65 /min Man Belcher [employer] FX ARTIST INSTRUCTOR.PLASMA 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 Work Phone: [facility] 04-19-2024 14:35-0400 Respiratory rate 14 /min Man Belcher SPECIAL MAKE[employer] FX ARTIST INSTRUCTOR.PLASMA 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 Work Phone: [facility] 04-19-2024 14:35-0400 Systolic blood pressure 116 mm[Hg] Man Belcher SPECIAL MAKE[employer] FX ARTIST INSTRUCTOR.PLASMA 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 Work Phone: [facility] 07-18-2022 17:51-0500 Body temperature 99 [degF] Uday Le SPECIAL MAKEUP FX ARTIST INSTRUCTOR.PLASMA 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 Work Phone: [facility] 07-18-2022 17:51-0500 Body weight 107.41 kg Uday Le SPECIAL MAKEUP FX ARTIST INSTRUCTOR.PLASMA 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 Work Phone: [facility] 07-18-2022 17:51-0500 Diastolic blood pressure 70 mm[Hg] Uday Le SPECIAL MAKEUP FX ARTIST INSTRUCTOR.PLASMA 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 Work Phone: [facility] 07-18-2022 17:51-0500 Heart rate 69 /min Uday Le SPECIAL MAKEUP FX ARTIST INSTRUCTOR.PLASMA 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 Work Phone: [facility] 07-18-2022 17:51-0500 Respiratory rate 20 /min Uday Le SPECIAL MAKEUP FX ARTIST INSTRUCTOR.PLASMA 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 Work Phone: [facility] 07-18-2022 17:51-0500 SaO2% (BldA) [Mass fraction] 100 % Uday Le SPECIAL [employer] FX ARTIST INSTRUCTOR.PLASMA 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 Work Phone: [facility] 07-18-2022 17:51-0500 Systolic blood pressure 120 mm[Hg] Uday Le SPECIAL MAKEUP FX ARTIST INSTRUCTOR.PLASMA 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 Work Phone: [facility] 01-10-2022 17:22-0400 Body mass index (BMI) [Percentile] Per age and sex 99.52 % Hbargavannie Fordjosemanuel SPECIAL MAKEUP FX ARTIST INSTRUCTOR.PLASMA 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 Work Phone: [facility] 01-10-2022 17:22-0400 Body temperature 97.9 [degF] Bhargav Angelcharly SPECIAL MAKEUP FX ARTIST INSTRUCTOR.PLASMA 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 Work Phone: [facility] 01-10-2022 17:22-0400 Body weight 122.74 kg Bhargav Loganileanacharly SPECIAL MAKEUP FX ARTIST INSTRUCTOR.PLASMA 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 Work Phone: [facility] 01-10-2022 17:22-0400 Diastolic blood pressure 60 mm[Hg] Bhargav Angelcharly SPECIAL MAKEUP FX ARTIST INSTRUCTOR.PLASMA 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 Work Phone: [facility] 01-10-2022 17:22-0400 Heart rate 56 /min Bhargav Angelcharly SPECIAL MAKEUP FX ARTIST INSTRUCTOR.PLASMA 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 Work Phone: [facility] 01-10-2022 17:22-0400 Respiratory rate 20 /min Bhargav Angelcharly SPECIAL MAKEUP FX ARTIST INSTRUCTOR.PLASMA 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 Work Phone: [facility] 01-10-2022 17:22-0400 SaO2% (BldA) [Mass fraction] 99 % Bhargav Angelcharly SPECIAL MAKEUP FX ARTIST INSTRUCTOR.PLASMA 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 Work Phone: [facility] 01-10-2022 17:22-0400 Systolic blood pressure 110 mm[Hg] Bhargav Angelcharly SPECIAL MAKEUP FX ARTIST INSTRUCTOR.PLASMA 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 Work Phone: [facility] 01-04-2022 16:58-0400 Body height 180.5 cm Hernan Post MD Work Phone: [facility] 01-04-2022 16:58-0400 Body mass index (BMI) [Percentile] Per age and sex 99.47 % Hernan Post MD Work Phone: [facility] 01-04-2022 16:58-0400 Body weight 121.02 kg Hernan Post MD Work Phone: [facility] 01-04-2022 16:58-0400 Diastolic blood pressure 62 mm[Hg] Hernan Post MD Work Phone: [facility] 01-04-2022 16:58-0400 Heart rate 69 /min Hernan Post MD Work Phone: [facility] 01-04-2022 16:58-0400 Respiratory rate 16 /min Hernan Post MD Work Phone: [facility] 01-04-2022 16:58-0400 SaO2% (BldA) [Mass fraction] 98 % Hernan Post MD Work Phone: [facility] 01-04-2022 16:58-0400 Systolic blood pressure 98 mm[Hg] Hernan Post MD Work Phone: [facility] Encounters Encounter Date Encounter Type Care Provider Facility Start: 04-19-2024 End: 04-19-2024 Patient encounter procedure Man Belcher APRN.PLASMA 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 Work Phone: [facility] [place] Comment on above: Bipolar affective di sorder, remission status unspecified (HCC) (Primary Dx); Separation anxiety Start: 04-19-2024 End: 04-19-2024 ambulatory MAN BELCHER Facility:[facility] Start: 02-23-2024 ambulatory Annette Mcmullen Facility: [facility] Start: 01-20-2024 End: 01-21-2024 Emergency department patient visit [facility] Facility:[facility] Start: 09-16-2023 End: 09-16-2023 Emergency department patient visit [facility] Start: 08-16-2022 End: 08-16-2022 Patient encounter procedure Frankie Torres Work Phone: Podiatry Comment on above: Open wound of toe, i nitial encounter (Primary Dx) Start: 08-02-2022 End: 08-02-2022 Patient encounter procedure Frankie Torres Work Phone: Podiatry Comment on above: Ingrowing toenail of right foot (Primary Dx) Start: 07-18-2022 End: 07-18-2022 Patient encounter procedure Uday Le APRN.PLASMA 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 Work Phone: [facility] Comment on above: Ingrown toenail (Anum justino Dx) Start: 02-22-2022 Telephone encounter Harriet rustnicolle SPECIAL MAKEUP FX ARTIST INSTRUCTOR.PLASMA 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 Work Phone: [facility] Comment on above: Results Start: 01-10-2022 End: 01-10-2022 Patient encounter procedure Bhargav Riley SPECIAL MAKEUP FX ARTIST INSTRUCTOR.PLASMA 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 Work Phone: [facility] Comment on above: Poison yuniel dermatiti s (Primary Dx) Start: 01-04-2022 End: 01-04-2022 Patient encounter procedure Hernan Post MD Work Phone: [facility] Comment on above: Encounter for well c hild visit at 16 years of age (Primary Dx); Childhood obesity, 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532] Start: 03-30-2020 End: 03-30-2020 Subsequent hospital visit by physician Mikel [facility] Work Phone: Radiology Comment on above: Wrist pain, acute, r ight [M25.531] Procedures Date Procedure Procedure Detail Performing Clinician Start: 09-16-2023 CT 3D RECONSTRUCTION DAVID LOWE Start: 09-16-2023 CT FACIAL BONES WO I V CONTRAST JUSTIN LOWE Start: 09-16-2023 CT HEAD WO IV CONTRAST JUSTIN JAMESONRISON Start: 01-04-2022 Adult depression scr eening assessment Hernan Post MD Work Phone: Start: 04-23-2021 Radex wrist complete minimum 3 views Lana Kelly SPECIAL MAKEUP FX ARTIST INSTRUCTOR.PLASMA 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 Work Phone: Start: 03-30-2020 Radex wrist complete minimum 3 views Uday Rey SPECIAL MAKEUP FX ARTIST INSTRUCTOR.PLASMA 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 Work Phone: Plan of Treatment Date Care Activity Detail Author Start: 09-15-2033 Urine microalbumin profile DTaP,Tdap,Td Vaccine (8 - Td or Tdap) [facility] Start: 11-29-2025 Urine microalbumin profile DTAP,TDAP,TD (7 - Td or Tdap) [facility] Start: 02-18-2024 Covid-19 Vaccine () Covid-19 Vaccine ( season) [facility] Start: 02-18-2024 Influenza vaccination Influenza Vacc ine (#1) [facility] Start: 01-04-2023 Adult depression screening assessment DEPRESSION SCREENING [facility] Start: 01-04-2023 COVID-19 VACCINE (#1) COVID-19 VACCI NE (#1) [facility] Comment on above: Postponed from 05/15 (Declined at this time) Start: 01-04-2023 MENINGOCOCCAL B: Consider based on risk (1 of 2 - Risk Bexsero 2-dose series) MENINGOCOCCAL B: Consider based on risk (1 of 2 - Risk Bexsero 2-dose series) [facility] Comment on above: Postponed from 11/12 (Declined at this time) Start: 2022 Anxiety Screening Anxiety Screening [facility] Start: 2022 Depression Screening Depression Scre ening [facility] Start: 2022 Hepatitis C screening Hepatitis C Sc crow [facility] Start: 2022 HIV screening HIV Screening [facility] Start: 02-17-2022 Influenza vaccination INFLUENZA (#1) [facility] Start: 01-04-2022 End: 03-06-2022 Comprehensive metabolic 2000 panel - Serum or Plasma COMP METABOLIC PANEL Lab Routine Encounter for well child visit at 16 years of age Childhood obesity, BMI 95-100 percentile Expected: 01/04/2022, Expires: 03/06/2022 [facility] Work Phone: Comment on above: Expected: 01/04/2022 , Expires: 03/06/2022 Start: 01-04-2022 End: 03-06-2022 Hemoglobin A1c in Blood HGB A1C Lab Routine Encounter for well child visit at 16 years of age Childhood obesity, BMI 95-100 percentile Expected: 01/04/2022, Expires: 03/06/2022 [facility] Work Phone: Comment on above: Expected: 01/04/2022 , Expires: 03/06/2022 Start: 01-04-2022 End: 03-06-2022 Lipid 1996 panel - Serum or Plasma LIPID PANEL BASIC Lab Routine Encounter for well child visit at 16 years of age Childhood obesity, BMI 95-100 percentile Expected: 01/04/2022, Expires: 03/06/2022 [facility] Work Phone: Comment on above: Expected: 01/04/2022 , Expires: 03/06/2022 Start: 01-04-2022 End: 03-06-2022 Thyrotropin [Units/volume] in Serum or Plasma TSH BLD Lab Routine Encounter for well child visit at 16 years of age Childhood obesity, BMI 95-100 percentile Expected: 01/04/2022, Expires: 03/06/2022 [facility] Work Phone: Comment on above: Expected: 01/04/2022 , Expires: 03/06/2022 Start: 2020 Meningococcal B Vacc ine: Consider Based On Risk (1 of 2 - Patient Seeks Protection) Meningococcal B Vaccine: Consider Based On Risk (1 of 2 - Patient Seeks Protection) [facility] Start: 2018 PEDS TO ADULT TRANSI TION ANNUAL ASSESSMENT PEDS TO ADULT TRANSITION ANNUAL ASSESSMENT [facility] Immunizations Immunization Date Immunization Notes Care Provider Fa olayinka 01-04-2022 Meningococcal, MCV4, unspecified conjugate formulation(groups A, C, Y and W-135) Hernan Post MD Work Phone: [facility] Work Phone: 01-04-2022 Human Papillomavirus 9-valent vaccine Hernan Post MD Work Phone: [place] [address]-19-2022 meningococcal polysaccharide (groups A, C, Y and W-135) diphtheria toxoid conjugate vaccine (MCV4P) Hernan Post MD Work Phone: [facility] 11-20-2018 Human Papillomavirus 9-valent vaccine Hernan Post MD Work Phone: [facility] 01-10-2017 meningococcal polysaccharide (groups A, C, Y and W-135) diphtheria toxoid conjugate vaccine (MCV4P) Hernan Post MD Work Phone: [facility] 11-30-2015 tetanus toxoid, redu carol diphtheria toxoid, and acellular pertussis vaccine, adsorbed Hernan Post MD Work Phone: [facility] 02-04-2011 diphtheria, tetanus toxoids and acellular pertussis vaccine Hernan Post MD Work Phone: [facility] 02-04-2010 hepatitis B vaccine, pediatric or pediatric/adolescent dosage Hernan Post MD Work Phone: [facility] 02-04-2010 measles, mumps and rubella virus vaccine Hernan Post MD Work Phone: [facility] 02-04-2010 varicella virus vaccine Gracielai margi Post MD Work Phone: [facility] 05-22-2008 influenza virus vaccine, unspecified formulation Hernan Post MD Work Phone: [facility] 04-10-2008 influenza virus vaccine, unspecified formulation Hernan Post MD Work Phone: [facility] 11-14-2006 hepatitis A vaccine, unspecified formulation Hernan Post MD Work Phone: [facility] Work Phone: 11-14-2006 pneumococcal conjuga te vaccine, 7 valent Hernan Post MD Work Phone: [facility] Work Phone: 05-09-2006 DTaP-hepatitis B and poliovirus vaccine Hernan Post MD Work Phone: [facility] Work Phone: 05-09-2006 pneumococcal conjuga te vaccine, 7 valent Hernan Post MD Work Phone: [facility] Work Phone: 11-11-2005 measles, mumps and rubella virus vaccine Hernan Post MD Work Phone: [facility] Work Phone: 11-11-2005 varicella virus vaccine Deanna Post MD Work Phone: [facility] Work Phone: 05-16-2005 DTaP-hepatitis B and poliovirus vaccine Hernan Post MD Work Phone: [facility] Work Phone: 03-23-2005 diphtheria, tetanus toxoids and acellular pertussis vaccine Hernan Post MD Work Phone: [facility] Work Phone: 03-23-2005 haemophilus influenz ae type b vaccine, HbOC conjugate Hernan Post MD Work Phone: [facility] Work Phone: 03-23-2005 poliovirus vaccine, inactivated Hernan Post MD Work Phone: [facility] Work Phone: 01-07-2005 diphtheria, tetanus toxoids and acellular pertussis vaccine Hernan Post MD Work Phone: [facility] Work Phone: 01-07-2005 haemophilus influenz ae type b vaccine, HbOC conjugate Hernan Post MD Work Phone: [facility] Work Phone: 01-07-2005 hepatitis B vaccine, pediatric or pediatric/adolescent dosage Hernan Post MD Work Phone: [facility] Work Phone: 01-07-2005 poliovirus vaccine, inactivated Hernan Post MD Work Phone: [facility] Work Phone: Payers Date Payer Category Payer Self-pay 2024 Unknown [id number] 2023 Unknown [id number] 2021 Unknown [employer] P[employer] OOS [id number] 2021-Present [phone] [address] [place] [address] PPO [id number] 2021 Unknown [id number] 2019 Unknown [id number] 2004 Unknown [id number] Unknown [id number] Unknown [id number] Social History Date Type Detail Facility Start: 12-31-2010 End: 07-18-2022 Tobacco smoking status NHIS Never smoked tobacco [facility] Work Phone: Start: 12-31-2010 End: 07-18-2022 Tobacco use and exposure Smokeless tobacco non-user [facility] Work Phone: Start: 01-04-2022 End: 08-16-2022 Alcohol intake Lifetime non-drinker (finding) [facility] Start: 11-20-2018 History SDOH Alcohol Frequency 1 [facility] Start: 05-22-2008 End: 07-18-2022 Tobacco Comment step-father smokes outside only. [facility] Start: 2004 Sex Assigned At Male [facility] Start: 02-29-2020 End: 01-10-2022 Exposure to SARS-CoV-2 (event) Not sure [facility] Start: 11-20-2018 End: 07-11-2022 [facility] Start: 11-20-2018 End: 07-11-2022 Alcohol Use Disorder Identification Test - Consumption [AUDIT-C] [facility] How often to you hav e a drink containing alcohol? Never [facility] Average Number of Drinks Not on file [facility] Start: 01-18-2021 Gender identity Identifies as male gender (finding) [facility] Start: 01-18-2021 Sexual orientation Heterosexual (finding) [facility] Clinical Notes 03-30-2020 to 04-19-2024 Patient InstructionsMan Belcher APRN.CNP - 04/19/2024 2:46 PM EDTPatient InstructionsMattvalente Testrake - 08/16/2022 8:26 AM Cb Lemus RN - 08/16/2022 8:12 AM ESTPatient Instructions Note Date & Type Note Facility 04-19-2024 Instructions Man Belcher APRN.CNP - 04/19/2024 2:54 PM EDT [facility]sel[facility] Med[facility] Management [facility] [address] [place] [address] [facility] [address] [place] [address] [facility] [address] [place] [address] [facility] [address] [place], [place] [address] [facility] [address] [place], [place] [address] [place] [address] [place] [address], [address] documented in this encounter [facility] 04-19-2024 Note HNO ID: [id number] Author: MAN BELCHER APRN.CNP Service: ? Author Type: Nurse Practitioner Type: Progress Notes Filed: 04/19/2024 14:56 Note Text: Chief Complaint Patient presents with: Follow Up: Discuss medication HPI Noris Middleton is a 18 year old male who presents here today for Above Complaints.. Patient presents for separation anxiety from his girlfriend. Patient's mom and gf in attendance of appt. Mom reports patient was in [facility] for [facility] days in November and since then he does not want to be away at home. Patient refuses to stay anywhere but home and has lost a job because of it. Mom reports job was with his dad and stepdad and even then he would not stay away from home. Will only stay away from home if his gf is with him. Patient reports if he has to be away he freaks out and gets angry and yells. Past medical history, appointments, medications, allergies reviewed. Previous Medical History PAST MEDICAL HISTORY Diagnosis Date ADHD (attention deficit hyperactivity disorder) Colorblindness Generalized anxiety disorder Keratosis pilaris Major depressive disorder Dr. Mcmullen at [facility] Seasonal allergies Previous Surgical History PAST SURGICAL HISTORY Procedure Laterality Date ADENOIDECTOMY PRIMARY Adenoidectomy, PE tube L ear MYRINGOTOMY ASPIRAND/EUSTACHIAN TUBE NFLTJ ANES 08/2006 Myringotomy/tubes TONSILLECTOMY PRIMARY/SECONDARY Family History FAMILY HISTORY Problem Relation Age of Onset Allergies Mother Headache Father migraines other (Other) Father depression Allergies Maternal Grandmother GI Maternal Grandmother other (Other) Maternal Grandmother sarcoidosis Lipids Maternal Grandfather Allergies Maternal Grandfather Diabetes Paternal Grandfather Hypertension Paternal Grandmother Lipids Paternal Grandmother Allergies Maternal Uncle Asthma Other great, great aunt Patient Allergies ALLERGIES Allergen Reactions Trimethoprim Hives Current Medications Current Outpatient Medications on File Prior to Visit Medication Sig buPROPion (WELLBUTRIN) 100 mg tablet Take 100 mg by mouth once daily. divalproex ER (DEPAKOTE ER) 250 mg 24 hr tablet Take 250 mg by mouth twice daily. levocetirizine dihydrochloride (XYZAL ORAL) Take by mouth. GARLIC ORAL Take by mouth. therapeutic multivitamin tablet Take 1 tablet by mouth once daily. predniSONE (DELTASONE) 10 mg tablet Take 4 tabs daily for 3 days, then 2 tabs daily for 3 days, then 1 tab daily for 3 days with food. (Patient not taking: Reported on 07/18/2022) ARIPiprazole (ABILIFY) 5 mg tablet Take 7.5 mg by mouth once daily. (Patient not taking: No sig reported) No current facility-administered medications on file prior to visit. Social History Social History Tobacco Use Smoking status: Never Smokeless tobacco: Never Tobacco comments: step-father smokes outside only. Substance Use Topics Alcohol use: Never Drug use: Never Review of Symptoms REVIEW OF SYSTEMS SEE HPI EXAM: BP 116/63 Pulse 65 Resp 14 Wt 98 kg (216 lb) General Appearance: Well appearing, alert, in no acute distress, well-hydrated, well nourished.. Health Maintenance List Meningococcal B Vaccine: Consider Based On Risk(1 of 2 - Patient Seeks Protection) Never done Depression Screening Never done Anxiety Screening Never done Hepatitis C Screening Never done HIV Screening Never done Influenza Vaccine(1) due on 02/18/2024 Covid-19 Vaccine(2023- season) Never done DTaP,Tdap,Td Vaccine(8 - Td or Tdap) due on 09/15/2033 Hepatitis B Vaccine Completed HPV Vaccine Completed Meningococcal Conjugate Vaccine Completed ASSESSMENT/PLAN: 1. Bipolar affective disorder, remission status unspecified (HCC) - ICD9: 296.80, ICD10: F31.9 (primary diagnosis) - Continue wellbutrin and depakote -Make an appt with psychiatry for med management as pediatric psych will no longer see patient due to age. - DIVALPROEX ER 250 MG TABLET,EXTENDED RELEASE 24 HR 2. Separation anxiety - ICD9: 309.21, ICD10: F93.0 -Make an appt with psychiatry for med management as pediatric psych will no longer see patient due to age. Man Belcher APRN.[facility] 04-19-2024 History of Presen t illness Narrative Chief Complaint Patient presents with: Follow Up: Discuss medication HPI Noris Middleton is a 18 year old male who presents here today for Above Complaints.. Patient presents for separation anxiety from his girlfriend. Patient's mom and gf in attendance of appt. Mom reports patient was in [facility] for 27 days in November and since then he does not want to be away at home. Patient refuses to stay anywhere but home and has lost a job because of it. Mom reports job was with his dad and stepdad and even then he would not stay away from home. Will only stay away from home if his gf is with him. Patient reports if he has to be away he freaks out and gets angry and yells. Past medical history, appointments, medications, allergies reviewed. Previous Medical History PAST MEDICAL HISTORY Diagnosis Date ADHD (attention deficit hyperactivity disorder) Colorblindness Generalized anxiety disorder Keratosis pilaris Major depressive disorder Dr. Mcmullen at [facility] Seasonal allergies Previous Surgical History PAST SURGICAL HISTORY Procedure Laterality Date ADENOIDECTOMY PRIMARY <AGE 11 08/2008 Adenoidectomy, PE tube L ear MYRINGOTOMY ASPIR&/EUSTACHIAN TUBE NFLTJ ANES 08/2006 Myringotomy/tubes TONSILLECTOMY PRIMARY/SECONDARY <AGE 11 2008 Family History FAMILY HISTORY Problem Relation Age of Onset Allergies Mother Headache Father migraines other (Other) Father depression Allergies Maternal Grandmother GI Maternal Grandmother other (Other) Maternal Grandmother sarcoidosis Lipids Maternal Grandfather Allergies Maternal Grandfather Diabetes Paternal Grandfather Hypertension Paternal Grandmother Lipids Paternal Grandmother Allergies Maternal Uncle Asthma Other great, great aunt Patient Allergies ALLERGIES Allergen Reactions Trimethoprim Hives Current Medications Current Outpatient Medications on File Prior to Visit Medication Sig buPROPion (WELLBUTRIN) 100 mg tablet Take 100 mg by mouth once daily. divalproex ER (DEPAKOTE ER) 250 mg 24 hr tablet Take 250 mg by mouth twice daily. levocetirizine dihydrochloride (XYZAL ORAL) Take by mouth. GARLIC ORAL Take by mouth. therapeutic multivitamin tablet Take 1 tablet by mouth once daily. predniSONE (DELTASONE) 10 mg tablet Take 4 tabs daily for 3 days, then 2 tabs daily for 3 days, then 1 tab daily for 3 days with food. (Patient not taking: Reported on 07/18/2022) ARIPiprazole (ABILIFY) 5 mg tablet Take 7.5 mg by mouth once daily. (Patient not taking: No sig reported) No current facility-administered medications on file prior to visit. Social History Social History Tobacco Use Smoking status: Never Smokeless tobacco: Never Tobacco comments: step-father smokes outside only. Substance Use Topics Alcohol use: Never Drug use: Never Review of Symptoms REVIEW OF SYSTEMS SEE HPI EXAM: BP 116/63 Pulse 65 Resp 14 Wt 98 kg (216 lb) General Appearance: Well appearing, alert, in no acute distress, well-hydrated, well nourished.. Health Maintenance List Meningococcal B Vaccine: Consider Based On Risk(1 of 2 - Patient Seeks Protection) Never done Depression Screening Never done Anxiety Screening Never done Hepatitis C Screening Never done HIV Screening Never done Influenza Vaccine(1) due on 02/18/2024 Covid-19 Vaccine(2023- season) Never done DTaP,Tdap,Td Vaccine(8 - Td or Tdap) due on 09/15/2033 Hepatitis B Vaccine Completed HPV Vaccine Completed Meningococcal Conjugate Vaccine Completed ASSESSMENT/PLAN: 1. Bipolar affective disorder, remission status unspecified (HCC) - ICD9: 296.80, ICD10: F31.9 (primary diagnosis) - Continue wellbutrin and depakote -Make an appt with psychiatry for med management as pediatric psych will no longer see patient due to age. - DIVALPROEX ER 250 MG TABLET,EXTENDED RELEASE 24 HR 2. Separation anxiety - ICD9: 309.21, ICD10: F93.0 -Make an appt with psychiatry for med management as pediatric psych will no longer see patient due to age. 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 documented in this encounter [facility] 08-16-2022 History of Presen t illness Narrative FOLLOW UP PODIATRIC OFFICE VISIT Chief Complaint: This 16 year old who presents for follow up:partial nail avulsion of right hallux lateral nail border Patient presents to clinic for follow-up right hallux He is s/p lateral border avulsion Patient denies pain and drainage He feels well PAIN EVALUATION No data found in the last 1 encounters. Hemoglobin A1C Date Value Ref Range Status 02/22/2022 4.7 4.3 - 5.6 % Final Comment: [place] [employer] guidelines indicate that patients with HgbA1c in the range 5.7-6.4% are at increased risk for development of diabetes, and intervention by lifestyle modification may be beneficial. HgbA1c greater or equal to 6.5% is considered diagnostic of diabetes. PCP: Justin Lowe, PAST MEDICAL HISTORY Diagnosis Date ADHD (attention deficit hyperactivity disorder) Colorblindness Generalized anxiety disorder Keratosis pilaris Major depressive disorder Dr. Mcmullen at [facility] Seasonal allergies Current Outpatient Medications Medication Sig divalproex ER (DEPAKOTE ER) 250 mg 24 hr tablet Take 250 mg by mouth twice daily. levocetirizine dihydrochloride (XYZAL ORAL) Take by mouth. GARLIC ORAL Take by mouth. therapeutic multivitamin tablet Take 1 tablet by mouth once daily. predniSONE (DELTASONE) 10 mg tablet Take 4 tabs daily for 3 days, then 2 tabs daily for 3 days, then 1 tab daily for 3 days with food. (Patient not taking: Reported on 07/18/2022) ARIPiprazole (ABILIFY) 5 mg tablet Take 7.5 mg by mouth once daily. (Patient not taking: No sig reported) No current facility-administered medications for this visit. ALLERGIES Allergen Reactions Trimethoprim Hives PAST SURGICAL HISTORY Procedure Laterality Date ADENOIDECTOMY PRIMARY <AGE 11 08/2008 Adenoidectomy, PE tube L ear MYRINGOTOMY ASPIR&/EUSTACHIAN TUBE NFLTJ ANES 08/2006 Myringotomy/tubes TONSILLECTOMY PRIMARY/SECONDARY <AGE 11 2008 Physical Exam: OBJECTIVE: Constitutional: Pt is a well developed 16 year old male who is alert, oriented, cooperative and in no apparent distress. Eyes: Following during examination. No redness or drainage. Respiratory: RR normal and nonlabored. Even breathing. No evidence of distress. Psychology: Patient is engaged during conversation. Normal affect and mood. Does not appear depressed or anxious. NVSI unchanged from previous visit. Dermatological: Right hallux lateral nail border is now healed without infection Musculoskeletal/Orthopaedic: Patient has no pain to palpation of right hallux ASSESSMENT: (S91.109A) Open wound of toe, initial encounter (primary encounter diagnosis) PLAN: Patient is s/p avulsion of right hallux. The nail bed is healed He no longer requires any wound care Educated patient on proper trimming of the nail If ingrown returns, call for permanent procedure F/u prn Frankie Torres DPM Patient presents with: Right Great Toe - Established Patient, Follow Up Patient presents for 2 week follow up of right partial nail avulsion, lateral border. Patient states it is healing well. Denies any signs of infection. documented in this encounter [facility] 08-02-2022 Instructions Frankie Torres - 08/02/2022 9:00 AM EST Post-Op Nail Instructions Minimize activity until the anesthesia wears off (about 2-8 hours). Increase activity to tolerance Remove bandage tomorrow Soak affected toe/foot in epsom salts for 15-20 minutes twice daily After soaking, apply antibiotic ointment (OTC Neosporin) to affected toe and re bandage OTC Ibuprofen if having pain, provided you have no allergies or intolerance to NSAIDS Mild drainage, redness, and blood is expected, but if you expeirence severe pain, increase in drainage, swelling, or red streaking please contact our office immediately Feel free to contact office as well if you have any questions/concerns [phone], ask for Podiatry Nurse documented in this encounter [facility] 08-02-2022 History of Presen t illness Narrative Images from the original note were not included. Initial Podiatric Office Visit: Chief Complaint: This 16 year old male who presents with chief complaint:ingrowing toenail of right hallux HPI Patient presents to clinic for evaluation of right hallux Patient has had ingrowing toenail to the lateral border of right hallux. This has been going on for about one month. They first treated with topical antibiotic. When infection failed to improve, they presented to urgent care on July 18. He was prescribed keflex and topical antibiotic. The infeciton and pain has subside. Patient has no pain unless he has pressure. When there is pain with pressure, it is along the lateral border. PAIN EVALUATION 08/02/2022 0836 Pain Level: 3 Pain Location: Toe Description: Aching;Sharp Duration Amount of Time: 4 Duration Units: Weeks Frequency: Intermittent Intervention/Comfort measure: Medication;Other: See comment Comments: Rest Hemoglobin A1C (%) Date Value 02/22/2022 4.7 05/04/2021 4.8 PCP: Justin Lowe, PAST MEDICAL HISTORY Diagnosis Date ADHD (attention deficit hyperactivity disorder) Colorblindness Generalized anxiety disorder Keratosis pilaris Major depressive disorder Dr. Mcmullen at [facility] Seasonal allergies Current Outpatient Medications Medication Sig divalproex ER (DEPAKOTE ER) 250 mg 24 hr tablet Take 250 mg by mouth twice daily. levocetirizine dihydrochloride (XYZAL ORAL) Take by mouth. GARLIC ORAL Take by mouth. therapeutic multivitamin tablet Take 1 tablet by mouth once daily. predniSONE (DELTASONE) 10 mg tablet Take 4 tabs daily for 3 days, then 2 tabs daily for 3 days, then 1 tab daily for 3 days with food. (Patient not taking: Reported on 07/18/2022) ARIPiprazole (ABILIFY) 5 mg tablet Take 7.5 mg by mouth once daily. (Patient not taking: No sig reported) No current facility-administered medications for this visit. ALLERGIES Allergen Reactions Trimethoprim Hives PAST SURGICAL HISTORY Procedure Laterality Date ADENOIDECTOMY PRIMARY <AGE 12 08/2008 Adenoidectomy, PE tube L ear MYRINGOTOMY ASPIR&/EUSTACHIAN TUBE NFLTJ ANES 08/2006 Myringotomy/tubes TONSILLECTOMY PRIMARY/SECONDARY <AGE 11 2008 FAMILY HISTORY Problem Relation Age of Onset Allergies Mother Headache Father migraines other (Other) Father depression Allergies Maternal Grandmother GI Maternal Grandmother other (Other) Maternal Grandmother sarcoidosis Lipids Maternal Grandfather Allergies Maternal Grandfather Diabetes Paternal Grandfather Hypertension Paternal Grandmother Lipids Paternal Grandmother Allergies Maternal Uncle Asthma Other great, great aunt Social History Tobacco Use Smoking status: Never Smokeless tobacco: Never Tobacco comments: step-father smokes outside only. Substance Use Topics Alcohol use: Never Drug use: Never REVIEW OF SYSTEMS GENERAL: Negative for Malaise, significant weight loss, fever RESPIRATORY: Negative for cough, wheezing and shortness of breath CARDIOVASCULAR: Negative for chest pain, leg swelling and palpitations GI: Negative for abdominal discomfort, blood in stools or black stools and change in bowel habits : Negative for dysuria, frequency and incontinence MUSCULOSKELETAL: Negative for joint pain or swelling, back pain, and muscle pain. SKIN: Negative for lesions, rash, and itching. HEMATOLOGY/LYMPHOLOGY Negative for prolonged bleeding, bruising easily, and swollen nodes. ENDOCRINE: Negative for cold or heat intolerance, polyuria, polydipsia and goiter. NEURO: negative Physical Exam: Constitutional: Pt is a well developed 16 year old male who is alert, oriented and cooperative Eyes: Following during examination. No redness or drainage. Respiratory: RR normal and nonlabored. Even breathing. No evidence of distress or shortness of breath. Psychology: Patient is engaged during conversation. Normal affect and mood. Does not appear depressed or anxious during encounter. Vascular: Dorsalis pedis and posterior tibial pulses palpable as right Capillary Fill time < 5 seconds to digits 1-5 right Skin temperature warm to warm proximal to distal right Hair growth present to digits Neurological: intact light touch/epicritic sensation right intact protective sensation no significant neurological deficits Dermatological: Right hallux lateral nail border is ingrowing with pain. No redness or drainage. No signs of infection. Webspaces clean and dry 1-4 b/l. Skin appears well hydrated and supple. good color, texture, turgor. No open lesions present. No callosities present. Musculoskeletal/Orthopaedic: Patient has pain to palpation of right hallux lateral nail border. Radiographs: n/a ASSESSMENT: (L60.0) Ingrowing toenail of right foot (primary encounter diagnosis) PLAN: 1. History and physical examination performed. 2. Discussed ingrowing toenail of right hallux lateral nail border. Infection appears to have resolved. 3. We discussed monitoring vs doing avulsion of lateral border vs doing matrixectomy. Patient still has pain so has elected to do avulsion. 4. Discussed risks of procedure not limited to infection, pain, swelling, bleeding, slow wound healing, recurrent ingrown, loss of toe. Patient mother consents to proceed with avulsion of lateral nail border Discussed risks of toenail procedure not limited to infection, pain, swelling, bleeding, painful scarring, recurrence, need for revised procedure. Patient consented to proceed. Patient was properly identified by name and procedure. The right hallux was then injected with 3 cc of 1% lidocaine plain. The toe was then prepped and draped in the usual aseptic technique. A digital tournicot was applied to the toe. The lateral border was then freed and removed. Careful inspection was performed to assure no remaining spicule present. Avulsion was performed. Sterile dressing was then applied consisting of amerigel, guaze, constantin and coban. Tournicot was removed and hyperemic response was noted. Patient tolerated well. Patient will f/u in 2 weeks. 5. Patient to continue with antibiotic until complete Frankie Torres DPM Podiatry [address] [place] [address] Dept: [phone] Dept AMB ROOMING INTAKE FLOWSHEET DATA Pain Pain Level: 3 Pain Location: Toe Description: Aching, Sharp Duration Amount of Time: 4 Duration Units: Weeks Frequency: Intermittent Intervention/Comfort measure: Medication, Other: See comment Comments: Rest Patient presents with: Right Great Toe - New Patient, Ingrown Nail Mother with patient. C/o ingrown toenail for a couple months. Went to 2 weeks ago and was prescribed antibiotic which helped resolve infection and pain. UNIVERSAL PROTOCOL / SAFETY CHECKLIST Procedure to be Performed: Partial nail avulsion, R hallux lateral border Sign In: A Moment of CARE was completed. Personnel directly involved with the procedure wore the appropriate PPE (Personal Protective Equipment). No special equipment needed. Patient/Surrogate Stated/Verified: PATIENT VERIFIED(optional for EMERGENT procedures): Patient name, Date of , Relevant allergies, and The intended procedure Time Out Communication: Intended patient and procedure match the source documents. Consent documented and matches the intended procedure. No relevant labs, photos, and/or imaging studies were applicable for review. Correct side/site marked and visible. Medications required for procedure verified. No fire risk assessment and interventions applicable. No implant(s) inserted. Sign Out: SIGN OUT (optional for EMERGENT procedures): No specimen collected. All instruments, equipment, possible retained foreign bodies accounted for. Post-procedure follow-up management communicated and Plan of Care Visit completed when applicable. Brenda Murphy RN documented in this encounter [facility] 07-18-2022 History of Presen t illness Narrative Images from the original note were not included. Subjective HPI HPI Noris Middleton is a 16 year old male who presents today for CC of right ingrown toenail. This started 1 week ago/worsening. Has tried nothing for relief. Symptoms are worsened by nothing. Denies fever. .Patient presents with: Toe Pain (Toe): R foot toe pain, possible infection x1 week PAST MEDICAL HISTORY Diagnosis Date ADHD (attention deficit hyperactivity disorder) Colorblindness Generalized anxiety disorder Keratosis pilaris Major depressive disorder Dr. Mcmullen at [facility] Seasonal allergies PAST SURGICAL HISTORY Procedure Laterality Date ADENOIDECTOMY PRIMARY <AGE 11 08/2008 Adenoidectomy, PE tube L ear MYRINGOTOMY ASPIR&/EUSTACHIAN TUBE NFLTJ ANES 08/2006 Myringotomy/tubes TONSILLECTOMY PRIMARY/SECONDARY <AGE 11 2008 ALLERGIES Trimethoprim MEDICATIONS divalproex ER (DEPAKOTE ER) 250 mg 24 hr tablet Take 250 mg by mouth twice daily. levocetirizine dihydrochloride (XYZAL ORAL) Take by mouth. GARLIC ORAL Take by mouth. therapeutic multivitamin tablet Take 1 tablet by mouth once daily. cephALEXin (KEFLEX) 500 mg capsule Take 1 capsule by mouth three times daily for 10 days. predniSONE (DELTASONE) 10 mg tablet Take 4 tabs daily for 3 days, then 2 tabs daily for 3 days, then 1 tab daily for 3 days with food. (Patient not taking: Reported on 07/18/2022) ARIPiprazole (ABILIFY) 5 mg tablet Take 7.5 mg by mouth once daily. (Patient not taking: No sig reported) FAMILY HISTORY Problem Relation Age of Onset Allergies Mother Headache Father migraines other (Other) Father depression Allergies Maternal Grandmother GI Maternal Grandmother other (Other) Maternal Grandmother sarcoidosis Lipids Maternal Grandfather Allergies Maternal Grandfather Diabetes Paternal Grandfather Hypertension Paternal Grandmother Lipids Paternal Grandmother Allergies Maternal Uncle Asthma Other great, great aunt Social History Tobacco Use Smoking status: Never Smokeless tobacco: Never Tobacco comments: step-father smokes outside only. Substance Use Topics Alcohol use: Never Drug use: Never ROS Objective Blood pressure 120/70, pulse 69, temperature 37.2 C (99 F), resp. rate 20, weight 107.4 kg (236 lb 12.8 oz), SpO2 100 %. Physical Exam Constitutional: General: He is not in acute distress. Appearance: He is not toxic-appearing or diaphoretic. HENT: Head: Normocephalic and atraumatic. Pulmonary: Effort: Pulmonary effort is normal. No accessory muscle usage or respiratory distress. Musculoskeletal: Feet: Neurological: Mental Status: He is alert and oriented to person, place, and time. ASSESSMENT/PLAN: 1. Ingrown toenail - ICD9: 703.0, ICD10: L60.0 Atb ordered and referral to podiatry placed Foot soaks discussed. - CEPHALEXIN 500 MG CAPSULE - CONSULT TO PODIATRY Uday Le APRN.CNP documented in this encounter [facility] 02-23-2022 Miscellaneous Notes Mother notified and verbalized understanding Gloria Borden Cma Please call patient's mother and let her know triglycerides just above normal. Recommend low fat diet and at least 150 minutes of exercise per week, The rest of her blood work was in acceptable ranges. Harriet Sierra APRN.CNP documented in this encounter [facility] 01-10-2022 History of Presen t illness Narrative Images from the original note were not included. Subjective HPI Nontoxic-appearing male presents urgent care chief plaint rash. Duration of symptoms 5 days. Associated symptoms pruritic erythematous rash. 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 Has been using OTC medications this has not helped. States most bothersome symptom is pruritus. Denies any pain with rash. Denies any recent medication changes antibiotic use. Denies any fever body aches chills cough chest pain shortness of breath pleuritic pain hemoptysis or change in bowel or bladder habits. Past medical history prescription medication use allergies reviewed. .Patient presents with: Rash: poison yuniel, widespread x5 days PAST MEDICAL HISTORY Diagnosis Date ADHD (attention deficit hyperactivity disorder) Colorblindness Generalized anxiety disorder Keratosis pilaris Major depressive disorder Dr. Mcmullen at [facility] Seasonal allergies PAST SURGICAL HISTORY Procedure Laterality Date ADENOIDECTOMY PRIMARY <AGE 11 08/2008 Adenoidectomy, PE tube L ear MYRINGOTOMY ASPIR&/EUSTACHIAN TUBE NFLTJ ANES 08/2006 Myringotomy/tubes TONSILLECTOMY PRIMARY/SECONDARY <AGE 11 2008 ALLERGIES Trimethoprim MEDICATIONS divalproex ER (DEPAKOTE ER) 250 mg 24 hr tablet Take 250 mg by mouth twice daily. levocetirizine dihydrochloride (XYZAL ORAL) Take by mouth. GARLIC ORAL Take by mouth. ARIPiprazole (ABILIFY) 5 mg tablet Take 7.5 mg by mouth once daily. therapeutic multivitamin tablet Take 1 tablet by mouth once daily. FAMILY HISTORY Problem Relation Age of Onset Allergies Mother Headache Father migraines other (Other) Father depression Allergies Maternal Grandmother GI Maternal Grandmother other (Other) Maternal Grandmother sarcoidosis Lipids Maternal Grandfather Allergies Maternal Grandfather Diabetes Paternal Grandfather Hypertension Paternal Grandmother Lipids Paternal Grandmother Allergies Maternal Uncle Asthma Other great, great aunt Social History Tobacco Use Smoking status: Never Smoker Smokeless tobacco: Never Used Tobacco comment: step-father smokes outside only. Substance Use Topics Alcohol use: Never Drug use: Never BP 110/60 Pulse (!) 56 Temp 36.6 C (97.9 F) Resp 20 Wt 122.7 kg (270 lb 9.6 oz) SpO2 99% BMI 37.67 kg/m Review of Systems Constitutional: Negative for chills, fever and malaise/fatigue. HENT: Negative for congestion, ear discharge, ear pain, sinus pain and sore throat. Eyes: Negative for blurred vision, pain, discharge and redness. Respiratory: Negative for cough, hemoptysis, sputum production, shortness of breath, wheezing and stridor. Cardiovascular: Negative for chest pain. Gastrointestinal: Negative for abdominal pain, diarrhea, nausea and vomiting. Musculoskeletal: Negative for myalgias. Skin: Positive for itching and rash. Neurological: Negative for dizziness and headaches. Objective Physical Exam Constitutional: General: He is not in acute distress. Appearance: He is not diaphoretic. HENT: Head: Normocephalic. Mouth/Throat: Mouth: Mucous membranes are moist. Pharynx: Oropharynx is clear. No oropharyngeal exudate or posterior oropharyngeal erythema. Eyes: Conjunctiva/sclera: Conjunctivae normal. Pupils: Pupils are equal, round, and reactive to light. Cardiovascular: Rate and Rhythm: Normal rate and regular rhythm. Heart sounds: Normal heart sounds. Pulmonary: Effort: Pulmonary effort is normal. No tachypnea, accessory muscle usage or respiratory distress. Breath sounds: Normal breath sounds. No stridor. Abdominal: Palpations: Abdomen is soft. Tenderness: There is no abdominal tenderness. Musculoskeletal: Cervical back: Normal range of motion and neck supple. No rigidity or tenderness. Lymphadenopathy: Cervical: No cervical adenopathy. Skin: General: Skin is warm and dry. Comments: Highlighted areas represented maculopapular rash with coalescing lesions noted scattered vesicles. No desquamation of skin. No involvement of mucosal membrane involvement. Neurological: Mental Status: He is alert and oriented to person, place, and time. ASSESSMENT/PLAN: 1. Poison yuniel dermatitis - ICD9: 692.6, ICD10: L23.7 Patient diagnosed contact dermatitis. Suspicious of poison yuniel. Will be placed on prednisone taper. Supportive therapies discussed. Follow-up with PCP as needed. Red flags for prompt reevaluation discussed. Will be seen in urgent care or ED for any new or worsening symptoms. Mother verbalized understand agrees with plan of care. Bhargav Riley APRN.SEAN documented in this encounter [facility] 01-04-2022 Instructions Hernan Post MD - 01/04/2022 4:54 PM EDT Images from the original note were not included. 5 to Go!TM Healthy Kids Inside & Out 5 Eat FIVE fruits and veggies a day 4 Give and get FOUR compliments a day 3 Consume THREE calcium products a day 2 Limit media time to TWO hours a day 1 Get at least ONE hour of exercise a day 0 Consume ZERO sugar-sweetened drinks Go! Be healthy, inside and out! www.[facility].org/5toGo Adolescent to Adult Transition Program [facility] cares about helping you and each of our adolescents and young adults make a smooth transition to adult care. If your current doctor is a scheme technician, we will work with you to decide the correct age for moving your care to a doctor or other provider who takes care of adults. We suggest that this move take place before age 22. Our office policy is to prepare you to move to a doctor or other provider who takes care of adults. This includes helping you find a doctor or other provider, sending medical records, and talking about any special needs with the new doctor or other provider. If your current doctor is in family medicine, [facility] will prepare you and your family for the transition to being an adult patient. You will be able to make your own healthcare decisions and will have an adult care team that meets your personal healthcare needs. At age 18, by law, we need your agreement to discuss personal health information with your family. We understand and respect that you may want to include your family in healthcare choices and will partner with you on how and when to include your family in decisions. We will make sure you know what changes to expect. We will also strive to make sure that all care team providers know your needs. We will help you find community resources and specialty care, if needed. Having your information before you come for the first time helps us be sure we do not miss any details. If joining our practice from outside [facility], we will help you request your medical record from past doctor(s) before your first visit. We will make every effort to work with your past providers to ensure a smooth transition and experience. We are always here for you. If you have any questions or concerns, please contact your primary care team or e-mail [email or web address] Got Transition is the federally funded national resource center on health care transition (HCT). Its aim is to improve transition from pediatric to adult health care through the use of evidence-driven strategies for health urgent care technician, youth, young adults, and their families. www.gottransition.org https://gottransition.org/resou rce/?awu-uksnqb-dxyohvh Healthy Children Ages & Stages Texting Program HealthyTrippy.org is an AAP ([place] [employer]) parenting website. It is a great resource for information. They have a new Ages & Stages texting program available to parents. Fill out the information in the link below to start getting helpful tips and resources from AAP experts right to your phone. Be sure to include your child's age so they can send you age appropriate information. https://www.[employer].org /[place]/tips-tools/HealthyChil kqvx-Emdadcl-Biyzkbq/Pages/juana al.aspx documented in this encounter [facility] 01-04-2022 History of Presen t illness Narrative WELL VISIT PEDIATRIC MALE 14-17 YRS OLD SERVICE DATE: 01/04/2022 Noris is a 16 year old male who presents today for well exam accompanied by his mother. SUBJECTIVE CONCERNS: no concerns. 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 HISTORY ACTIVE PROBLEM LIST Adhd (Attention Deficit Hyperactivity Disorder) - 01/14/2014 Allergic Rhinitis - 02/03/2012 Keratosis Pilaris - 02/03/2012 Cough - 10/14/2006 PAST MEDICAL HISTORY Diagnosis Date ADHD (attention deficit hyperactivity disorder) Colorblindness Keratosis pilaris Major depressive disorder Seasonal allergies PAST SURGICAL HISTORY Procedure Laterality Date ADENOIDECTOMY PRIMARY <AGE 12 08/2008 Adenoidectomy, PE tube L ear MYRINGOTOMY ASPIR&/EUSTACHIAN TUBE NFLTJ ANES 08/2006 Myringotomy/tubes TONSILLECTOMY PRIMARY/SECONDARY <AGE 12 2008 ALLERGIES Allergen Reactions Trimethoprim Hives Medications: levocetirizine dihydrochloride (XYZAL ORAL) Take by mouth. GARLIC ORAL Take by mouth. ARIPiprazole (ABILIFY) 5 mg tablet Take 5 mg by mouth once daily. therapeutic multivitamin tablet Take 1 tablet by mouth once daily. FAMILY HISTORY Problem Relation Age of Onset Allergies Mother Headache Father migraines other (Other) Father depression Allergies Maternal Grandmother GI Maternal Grandmother other (Other) Maternal Grandmother sarcoidosis Lipids Maternal Grandfather Allergies Maternal Grandfather Diabetes Paternal Grandfather Hypertension Paternal Grandmother Lipids Paternal Grandmother Allergies Maternal Uncle Asthma Other great, great aunt Social History Social History Narrative Not on file Smoking Exposure: Does your child spend a significant amount of time in the care of anyone who smokes? No School: Grade: 11th; grades B. Physical Activity: less than 1 hour of physical activity per day Screen Time totaling more than 2 hours of screen time per day. Safety: Reviewed smoke detectors, seatbelts, and firearms (locked up in gun safe) Diet: -Eats 3 meals per day and 3 snacks per day Elimination: no concerns, normal size and consistency Dental: dental care current Sleep: -no sleep concerns Substance use: none Sexual History: Attraction: female Sexually Active: No Screening tools reviewed and discussed with patient/[id number]-[id number]-A and Social Determinants of Health. Please see Patient Entered Data. 01/04/22 1716 Last Filed Value PHQ-A Feeling down, depressed, irritable, or hopeless? Not at all Not at all Little interest or pleasure in doing things? Not at all Not at all Trouble falling asleep, staying asleep, or sleeping too much? Several days Several days Poor appetite, weight loss, or overeating? Not at all Not at all Feeling tired, or having little energy? Not at all Not at all Feeling bad about yourself - or feeling that you are a failure, or have let yourself or your family down? Not at all Not at all Trouble concentrating on things like school work, reading, or watching TV? Not at all Not at all Moving or speaking so slowly that other people could have noticed? Or the opposite- being so fidgety or restless that you have been moving around a lot more than usual? Not at all Not at all Thoughts that you would be better off , or of hurting yourself in some way? Not at all Not at all In the PAST YEAR have you felt depressed or sad most days, even if you felt okay sometimes? No No If you are experiencing any of the problems on this questionnaire, how difficult have these problems made it for you to do your work, take care of things at home, or get along with other people? Has there been a time in the PAST MONTH when you have had serious thoughts about ending your life? No No Have you EVER, in your WHOLE LIFE, tried to kill yourself or made a suicide attempt? No No PHQ-A calculated score 1 1 PHQ-A Total Score 1 1 REVIEW OF SYSTEMS GENERAL: No fevers EYES: No vision concerns and Wears glasses ENT: No hearing concerns RESPIRATORY: Negative for cough, wheezing or respiratory distress CARDIOVASCULAR: Negative for chest pain, syncope, lightheadness or heart racing SKIN: Negative for lesions, rash, and itching ENDOCRINE: No growth concerns OBJECTIVE Physical Exam: BP 98/62 Pulse 69 Resp 16 Ht 180.5 cm (5' 11.06) Wt 121 kg (266 lb 12.8 oz) SpO2 98% BMI 37.15 kg/m Blood pressure percentiles are 3 % systolic and 25 % diastolic based on the 2017 AAP Clinical Practice Guideline. This reading is in the normal blood pressure range. >99 %ile (Z= 2.56) based on CDC (Boys, 2-20 Years) BMI-for-age based on BMI available as of 01/04/2022. Vision screen: OS: OD: OU: Last BMI: Wt: 124.7 kg (275 lb) (>99 %, Z= 3.06)* BMI: 41.68 kg/(m^2) Last 4 Encounter Wt Readings: Date: Wt: 04/23/2021 124.7 kg (275 lb) (>99 %, Z= 3.06)* 01/05/2021 116.6 kg (257 lb) (>99 %, Z= 2.90)* 03/30/2020 116.7 kg (257 lb 3.2 oz) (>99 %, Z= 3.09)* 11/20/2018 97.5 kg (215 lb) (>99 %, Z= 2.78)* Last 4 Encounter Ht Readings: Date: Ht: 11/20/2018 173 cm (5' 8.11) (87 %, Z= 1.14)* 01/10/2017 157.5 cm (5' 2) (83 %, Z= 0.97)* 11/30/2015 152.4 cm (5') (89 %, Z= 1.21)* 11/14/2014 146.1 cm (4' 9.5) (87 %, Z= 1.11)* General: Well developed, No acute distress, Obese Head: normocephalic Eyes: conjunctivae/corneas clear Ears: normal external ear and canal, tympanic membranes with normal landmarks Neck: Supple, no adenopathy; thyroid symmetric, normal size, no bruits Spine: Back symmetric, no curvature Resp: lungs clear to auscultation Heart: RRR, normal S1 and S2. , No murmurs Chest: symmetric, no lesions Abdomen: Soft, nontender, nondistended, no palpable organomegaly or masses, normal bowel sounds Genitalia: no inguinal masses, no rashes or lesions, circumcised, testes descended bilaterally Extremities: No clubbing, cyanosis, or edema., No deformities or skin discoloration. Good capillary refill. Full range of motion. Neuro: No focal deficits or abnormal findings present Skin: no rashes, lesions or jaundice ASSESSMENT & PLAN Encounter Diagnosis ICD-10-CM 1. Encounter for well child visit at 16 years of age Z00.129 COMP METABOLIC PANEL HGB A1C LIPID PANEL BASIC TSH BLD 2. Childhood obesity, BMI 95-100 percentile E66.9 COMP METABOLIC PANEL Z68.54 HGB A1C LIPID PANEL BASIC TSH BLD 3. Encounter for immunization Z23 MENINGOCOCCAL CONJUGATE [id number], IM HUMAN PAPILLOMAVIRUS 9-VALENT HPV IM >99 %ile (Z= 2.56) based on CDC (Boys, 2-20 Years) BMI-for-age based on BMI available as of 01/04/2022. Noris is obese (BMI greater than 95th%): -Discussed how healthy eating, minimizing electronics and getting physical activity impact physical and emotional health -Avoid eating out and encouraged family meals at home -Lipid panel, AST, ALT and fasting glucose ordered based on Obesity Expert Committee Guidelines Based on PHQ-A Score: (recommended cut off score is 11) and interview, presentation is not consistent with depression - Adolescent anticipatory guidance discussed. - Discussed diet and safety. - Dental care discussed. - Parent/guardian was counseled [id number] by myself (the billing provider) for the following immunizations and vaccine components, including side effects: HPV and Menactra. Parent/guardian consents for immunization and understands risks and benefits. A VIS sheet on each immunization was given to the parent/guardian. - Follow up in one year for routine physical. Student sent home SIGNATURE: Hernan Post MD PATIENT NAME: Noris Middleton DATE: January 04, 2022 TIME: 4:53 PM documented in this encounter [facility] 01-04-2022 Miscellaneous Notes Spoke to patient's mom and she stated they would be in at 440p as requested. Phoned patients mom to see about coming at 440p for appt. So Dr post can have 40 min to do physical/wellchild.- message left for her to return call to advise. documented in this encounter [facility] 04-23-2021 History of Presen t illness Narrative Radiology Service Progress Note PATIENT NAME: Noris Middleton DATE OF SERVICE: April 23, 2021 TIME: 4:39 PM PATIENT IDENTITY VERIFICATION COMPLETED USING TWO (2) IDENTIFIERS: Name and Date of confirmed by patient verbally. FALL SCREENING: Has the patient had 2 falls in the last year or 1 fall with injury or currently using an Ambulatory Assistive Device (Walker, Cane, Wheelchair, Crutches, etc.)? No PATIENT GENDER DATA: Male PATIENT RELEVANT IMPLANT DATA REVIEWED: Not Applicable RADIOLOGY DEPARTMENT: General X-ray: Exam(s) Completed: Upper Extremity X-Ray(s): Wrist, left PERIPHERAL IV DATA: Not applicable SIGNED BY: RT Ricki(R) April 23, 2021 4:39 PM documented in this encounter [facility] 03-30-2020 History of Presen t illness Narrative Radiology Service Progress Note PATIENT NAME: Noris Middleton DATE OF SERVICE: March 30, 2020 TIME: 6:33 PM PATIENT IDENTITY VERIFICATION COMPLETED USING TWO (2) IDENTIFIERS: Name and Date of confirmed by patient verbally. FALL SCREENING: Has the patient had 2 falls in the last year or 1 fall with injury or currently using an Ambulatory Assistive Device (Walker, Cane, Wheelchair, Crutches, etc.)? No PATIENT GENDER DATA: Male PATIENT RELEVANT IMPLANT DATA REVIEWED: Yes RADIOLOGY DEPARTMENT: General X-ray: Exam(s) Completed: Upper Extremity X-Ray(s): Wrist, right : PERIPHERAL IV DATA: Not applicable SIGNED BY: RT Travis March 30, 2020 6:33 PM documented in this encounter [facility] Evaluation note Diagnosis Encounter for well child visit at 16 years of age- Primary Childhood obesity, BMI 95-100 percentile Obesity, unspecified Encounter for immunization Need for other specified prophylactic vaccination against single bacterial disease [facility] Diagnosis Poison yuniel dermatitis- Primary Contact dermatitis and other eczema due to plants (except food) [facility] Ingrown toenail- Primary Ingrowing nail [facility] Diagnosis Ingrowing toenail of right foot- Primary Ingrowing nail [facility] Diagnosis Open wound of toe, initial encounter- Primary [facility] Diagnosis Left wrist pain Pain in joint, forearm [facility] Diagnosis Bipolar affective disorder, remission status unspecified (HCC)- Primary Separation anxiety Separation anxiety disorder documented in this encounter [facility] for referral (narrative)* Diagnostic Procedure Only (Urgent) - Closed Specialty Diagnoses / Procedures Referred By Aurora t Referred To Contact XR IMAGING Diagnoses Left wrist pain Procedures XR WRIST INJURY 4V PA/LAT/OBL/SCAPH LT X-RAY WRIST COMPLET MIN 3 VIEWS Lana Mendoza APRN.CNP [id number] [place] [address] [place] [id number] Referral ID Status Reason Start Date Expiration Date V isits Requested Visits Authorized [id number] Closed Auto-Generate d Referral 04/23/2021 05/23/2022 1 1 [facility] for visit Narrative* Diagnostic Procedure Only (Urgent) - Closed Specialty Diagnoses / Procedures Referred By Contac t Referred To Contact XR IMAGING Diagnoses Left wrist pain Procedures XR WRIST INJURY 4V PA/LAT/OBL/SCAPH LT X-RAY WRIST COMPLET MIN 3 VIEWS Lana Mendoza APRN.CNP [id number] [place] [address] [place] [address] Referral ID Status Reason Start Date Expiration Date V isits Requested Visits Authorized [id number] Closed Auto-Generate d Referral 04/23/2021 05/23/2022 1 1 [facility] Summary Purpose Family History No Family History Records FoundNo Family History Records FoundNo Family History Records FoundNo Family History Records FoundNo Family History Records Found Advance Directives No Advanced Directives Records FoundNo Advanced Directives Records FoundNo Advanced Directives Records FoundNo Advanced Directives Records FoundNo Advanced Directives Records Found Reason for Referral Specialty Diagnoses / Procedures Referred By Contlesvia t Referred To Contact Podiatry Diagnoses Ingrown toenail Procedures CONSULT TO PODIATRY OFFICE/OUTPATIENT [facility] MDM 60-74 MINUTES Uday Le APRN.PLASMA 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 [address] [place] [address] Referral ID Status Reason Start Date Expiration Date Visits Requested Visits Authorized [id number] Authorized PCP Requested Referral 07/18/2022 07/18/2023 1 1 Additional Source Comments (unrecognized sect ion and content) No Status Records FoundNo Status Records FoundNo Status Records FoundNo Status Records FoundNo Status Records Found INFORMATION SOURCE (unrecogn ized section and content) DATE CREATED AUTHOR 04/01/2019 [facility] DATE CREATED AUTHOR AUTHOR'S ORGANIZ ATION 05/05/2021 [facility] DATE CREATED AUTHOR AUTHOR'S ORGANIZ ATION 09/21/2023 [facility] DATE CREATED AUTHOR AUTHOR'S ORGANIZ ATION 02/25/2024 [facility] DATE CREATED AUTHOR AUTHOR'S ORGANIZ ATION 04/24/2024 [facility] Source Comments (unrecognize d section and content) In the event this informatio n is protected by the Federal Confidentiality of Alcohol and Drug Abuse Patient Records regulations: The Federal rules restrict any use of the information to criminally investigate or prosecute any alcohol or drug abuse patient.[facility] the event this information is protected by the Federal Confidentiality of Alcohol and Drug Abuse Patient Records regulations: The Federal rules restrict any use of the information to criminally investigate or prosecute any alcohol or drug abuse patient.[facility] the event this information is protected by the Federal Confidentiality of Alcohol and Drug Abuse Patient Records regulations: The Federal rules restrict any use of the information to criminally investigate or prosecute any alcohol or drug abuse patient.[facility] the event this information is protected by the Federal Confidentiality of Alcohol and Drug Abuse Patient Records regulations: The Federal rules restrict any use of the information to criminally investigate or prosecute any alcohol or drug abuse patient.[facility] the event this information is protected by the Federal Confidentiality of Alcohol and Drug Abuse Patient Records regulations: The Federal rules restrict any use of the information to criminally investigate or prosecute any alcohol or drug abuse patient.[facility] the event this information is protected by the Federal Confidentiality of Alcohol and Drug Abuse Patient Records regulations: The Federal rules restrict any use of the information to criminally investigate or prosecute any alcohol or drug abuse patient.[facility] the event this information is protected by the Federal Confidentiality of Alcohol and Drug Abuse Patient Records regulations: The Federal rules restrict any use of the information to criminally investigate or prosecute any alcohol or drug abuse patient.[facility] the event this information is protected by the Federal Confidentiality of Alcohol and Drug Abuse Patient Records regulations: The Federal rules restrict any use of the information to criminally investigate or prosecute any alcohol or drug abuse patient.[facility] the event this information is protected by the Federal Confidentiality of Alcohol and Drug Abuse Patient Records regulations: The Federal rules restrict any use of the information to criminally investigate or prosecute any alcohol or drug abuse patient.[facility] the event this information is protected by the Federal Confidentiality of Alcohol and Drug Abuse Patient Records regulations: The Federal rules restrict any use of the information to criminally investigate or prosecute any alcohol or drug abuse patient.[facility] Reason for Visit (unrecogniz ed section and content) Reason Comments Appointment contacted patients m om to see if able to arrive at 440p since needing a physical/wellchild check- message left to return call Reason Comments Well Child physical form for sc outs Reason Comments Rash poison yuniel, widespre ad x5 days Reason Comments Results Reason Comments Toe Pain (Toe) R foot toe pain, pos sible infection x1 week Reason Comments New Patient Ingrown Nail Reason Comments Established Patient Follow Up Reason Comments Follow Up Discuss medication Care Teams (unrecognized sec tion and content) Cost Clerk Relationship Specialty Start Date End Date Justin Lowe DO [address] [place] [address] PCP - General Family Practice 08/01/15 Cost Clerk Relationship Specialty Start Date End Date Justin Lowe DO [address] [place] [address] PCP - General Family Practice 08/01/15 Cost Clerk Relationship Specialty Start Date End Date Justin Lowe DO [address] [place] [address] PCP - General Family Practice 08/01/15 Cost Clerk Relationship Specialty Start Date End Date Justin Lowe DO [address] [place] [address] PCP - General Family Medicine 08/01/15 Cost Clerk Relationship Specialty Start Date End Date Justin Lowe DO [address] [place] [address] PCP - General Family Medicine 08/01/15 Cost Clerk Relationship Specialty Start Date End Date Justin Lowe DO [address] [place] [address] PCP - General Family Medicine 08/01/15 Cost Clerk Relationship Specialty Start Date End Date Justin Lowe DO [address] [place] [address] PCP - General Family Medicine 08/01/15 Cost Clerk Relationship Specialty Start Date End Date Justin Lowe DO [address] [place] [address] PCP - General Family Medicine 08/01/15 Cost Clerk Relationship Specialty Start Date End Date Justin Lowe DO [address] [place] [address] PCP - General Family Medicine 08/01/15 FOR RECORDS PERTAINING TO PATIENTS WHO ARE OR HAVE BEEN ENROLLED IN A CHEMICAL DEPENDENCY/SUBSTANCEABUSE PROGRAM, SOME INFORMATION MAY BE OMITTED. This clinical summary was aggregated from multiple sources. Caution should be exercised in using it in the provision of clinical care. This summary normalizes information from multiple sources, and as a consequence, information in this document may materially change the coding, format and clinical context of patient data. In addition, data may be omitted in some cases. CLINICAL DECISIONS SHOULD BE BASED ON THE PRIMARY CLINICAL RECORDS. [facility] [facility]. provides no warranty or guarantee of the accuracy or completeness of information in this document.
--- NOTE | 2025-01-02 22:45 | RAD_ITS ---
PROCEDURE: HAND MIN 3 VIEWS 01/02/2025 REASON FOR EXAM: DOG BITE, PAIN TECHNIQUE: HAND MIN 3 VIEWS COMPARISON: No FINDINGS: No fracture, dislocation, or foreign body noted. RAD/Hand Min 3 Views IMPRESSION: No injury noted. Reading Location: [place] [address]
[2025-01-02] MEDS: HYDROcodone Bitartrate/Apap 5/325 Tablet PO (22:54)
--- NOTE | 2025-01-02 23:03 | EX.ED.VISEXT ---
HPI History of Present Illness Chief Complaint: Bite Narrative Narrative: Chief complaint and HPI: Dog bite. 19-year-old male with past medical history of bipolar and anxiety presents for evaluation of dog bite. Patient states him and his sister's dogs got into a fight. One of the dogs is a pitbull. He states that he obtained bites to the left hand and right hand/wrist. States he only has pain in the left hand. Has not cleaned the wounds. Has not taken anything for the pain. Tetanus expires this year. Both dogs are vaccinated. Review of systems: See HPI Medications: As listed on the chart Allergies: As listed on the chart PFSH: Per chart Vital signs: As listed on the chart. Reviewed. Physical exam: Gen: A&O x3, NAD Head: Normocephalic, atraumatic Eyes: No sclera icterus, conjunctiva clear ENT: Moist mucous membranes CV: Regular rate Resp: Nonlabored respiration Musc: Full ROM of the bilateral upper extremities including the bilateral wrists/hands/fingers, patient has tenderness to palpation of the left hand diffusely-no erythema/ecchymosis/swelling, multiple puncture wounds to the bilateral hands and right wrist, good capillary refill, compartments soft, radial pulses +2 bilaterally Skin: Warm, dry Neuro: Alert, oriented, grossly intact, sensation intact Psych: Cooperative, appropriate mood and affect [facility] Medical History (Updated 01/02/25 @ 23:[address] Drake Joshi DO) Anxiety Bipolar disorder Smoker ADHD History of anxiety History of depression Home Medications ?Medication ?Instructions ?Recorded ?Last Taken ?Type amoxicillin 875 mg-potassium 1 tab PO BID 7 days #14 tabs 01/02/25 Unknown Rx clavulanate 125 mg tablet Allergy/AdvReac Type Severity Reaction Status Date / Time trimethoprim Allergy Hives Verified 01/02/25 21:07 Social History Smoking Status: Current every day smoker tobacco type: e-cigarettes EXAM Physical Exam Const Vital Signs: 01/02/25 21:02 01/02/25 23:09 Temperature 98.2 F 98.2 F Temperature Source Temporal Pulse Rate 110 H 97 Respiratory Rate 18 18 Blood Pressure 96/46 L 110/79 Blood Pressure Mean 62 89 Pulse Ox 99 99 Oxygen Delivery Method Room Air MDM MDM MDM Narrative Medical decision making narrative: 19-year-old male with past medical history of bipolar and anxiety presents for evaluation of dog bite. Patient states he obtained dog bites to his bilateral hands and right wrist. His tetanus expires this year. He would like this updated, tetanus ordered. Physical exam shows multiple puncture wounds to both hands, none need sutured repaired. Will clean the wounds and dress them. Given the tenderness to the left hand will obtain x-ray to assess for fracture versus contusion. Patient will be placed on a 7-day course of Augmentin. First dose given here. He was given a [place] for pain. X-ray of the left hand was personally reviewed and interpreted by me, ED physician. No fracture or dislocation. Radiology in agreement. Patient stable to discharge home. Follow-up with primary care physician. He confirmed understanding of plan. Impression: 1. Dog bite to the bilateral hands 2. Left hand contusion Radiography Diagnostic Testing: Clinical Impression(s) from Imaging Studies Hand X-Ray 01/02/25 22:45 IMPRESSION: No injury noted. Reading Location: [place] [address] Discharge Plan Triage Chief Complaint: Bite ED Provider: Drake Joshi Dx/Rx/DC Orders Clinical Impression: Dog bite, Contusion of left hand Instructions: ED Dog Bite Prescriptions: New amoxicillin-pot clavulanate 875-125 mg tablet 1 tab PO BID 7 Days Qty: 14 0RF Primary Care Provider: Justin Winkler Referrals: Justin Winkler, [Primary Care Provider] - 3-5 Days Activity Restrictions/Additional Instructions: Take all of your antibiotics. Follow-up with your primary care physician. Monitor for signs of infection. Print Language: Kiswahili Disposition Disposition: Home, Self Care Discharge Date/Time: 01/02/25 23:13
[2025-01-02 23:09] VITALS: BP 110/79; PULSE 97; RESP 18; TEMP 36.8; O2SAT 99
== END 2025-01-02 23:13 | disposition home or self-care (01) ==
PROVIDERS: Emergency Provider Surgery; PCP Student in an Organized Health Care Education/Training Program; Visit Provider Surgery
DX: S61.432A Puncture wound without foreign body of left hand, initial encounter (principal); S60.222A Contusion of left hand, initial encounter; S61.431A Puncture wound without foreign body of right hand, initial encounter; W54.0XXA Bitten by dog, initial encounter; F17.290 Nicotine dependence, other tobacco product, uncomplicated; Z23 Encounter for immunization
CPT/HCPCS: 73130; 90471; 90715; 99283

== ENCOUNTER 2025-06-05 08:02 | Emergency (ER) | payer BC, SELFPAY ==
[2025-06-05 08:02] VITALS: BP 135/97; PULSE 89; RESP 14; TEMP 36.4; O2SAT 98; BMI 27.3
--- NOTE | 2025-06-05 08:08 | EKG12_ITS ---
Test Reason : SYNCOPE Blood Pressure : */* mmHG Vent. Rate : 77 BPM Atrial Rate : 77 BPM P-R Int : 156 ms QRS Dur : 102 ms QT Int : 340 ms P-R-T Axes : 47 88 11 degrees QTcB Int : 384 ms Normal sinus rhythm Normal ECG Confirmed by Jose Rao ([id number]), non linear editor SUHAIL LOVELACE ([id number]) on 06/06/2025 10:35:44 AM Referred By: Confirmed By: Jose Rao
--- NOTE | 2025-06-05 08:32 | EX.ED.DYSGE1 ---
HPI History of Present Illness Chief Complaint: Syncope Narrative Narrative: Patient 19-year-old male with past medical history of anxiety, bipolar disorder, depression who presented to the emergency department with the chief complaint of passing out. Patient states that this morning he went to stand up to get out of bed he got lightheaded and passed out fell backwards hit his head on the dresser. He states that this has happened in the past but not recently. He notes that he has had diarrhea for the last several days and the entire house is sick as well. He states that he has had a headache for the last 3 days as well and has tried take ibuprofen for this with mild relief. [facility] Medical History Anxiety Bipolar disorder Smoker ADHD History of anxiety History of depression Home Medications ?Medication ?Instructions ?Recorded ?Last Taken ?Type NK 06/05/25 Unknown History Allergy/AdvReac Type Severity Reaction Status Date / Time trimethoprim Allergy Hives Verified 06/05/25 08:04 Social History Smoking Status: Current every day smoker tobacco type: e-cigarettes ROS ROS ED ROS Narrative Constitutional: Denies any fevers, chills complains of lightheadedness prior to passing out as noted above Eyes: Denies double vision Cardiovascular: Denies chest pain Respiratory: Denies shortness of Abdomen: Denies abdominal pain nausea vomiting complains of diarrhea as noted above : Denies urinary symptoms Neurological: Denies numbness, weakness, tingling Musculoskeletal: Denies back pain Skin: Denies rashes or lesions EXAM Physical Exam Narrative Exam Narrative: General: Patient is lying in bed rest comfortably did not appear to be in acute distress Head: Atraumatic, normocephalic Eyes: PERRL bilaterally, EOMI bilaterally, no conjunctival injection noted Neck: Soft, supple, trachea midline Cardiovascular: Regular rate and rhythm Respiratory: Clear to auscultation bilaterally Extremities: +5/5 strength in the bilateral upper and lower extremities, Neurological: Patient commands that he was at [facility] year is 2024 NIH is 0 GCS 15 Skin: Warm, dry, intact no rashes or lesions noted Const Vital Signs: 06/05/25 08:02 06/05/25 08:08 06/05/25 08:48 Temperature 97.5 F L Temperature Source Temporal Pulse Rate 89 Pulse Rate [Lying] Pulse Rate [Sitting (for 1 minute prior to obtaining)] Pulse Rate [Standing (for 1 minute prior to obtaining)] Respiratory Rate 14 Respiratory Effort Normal Respiratory Pattern Normal Blood Pressure 135/97 H Blood Pressure [Lying] Blood Pressure [Sitting (for 1 minute prior to obtaining)] Blood Pressure [Standing (for 1 minute prior to obtaining)] Blood Pressure Mean 109 Blood Pressure Mean [Lying] Blood Pressure Mean [Sitting (for 1 minute prior to obtaining)] Blood Pressure Mean [Standing (for 1 minute prior to obtaining)] Pulse Ox 98 Oxygen Delivery Method Room Air Room Air 06/05/25 08:56 06/05/25 10:24 06/05/25 11:55 Temperature 98.1 F Temperature Source Pulse Rate 79 79 Pulse Rate [Lying] 83 Pulse Rate [Sitting (for 1 minute prior to obtaining)] 80 Pulse Rate [Standing (for 1 minute prior to obtaining)] 92 Respiratory Rate 16 16 Respiratory Effort Respiratory Pattern Blood Pressure 105/63 105/63 Blood Pressure [Lying] 122/61 H Blood Pressure [Sitting (for 1 minute prior to obtaining)] 110/62 Blood Pressure [Standing (for 1 minute prior to obtaining)] 107/59 L Blood Pressure Mean 77 77 Blood Pressure Mean [Lying] 81 Blood Pressure Mean [Sitting (for 1 minute prior to obtaining)] 78 Blood Pressure Mean [Standing (for 1 minute prior to obtaining)] 75 Pulse Ox 99 99 Oxygen Delivery Method MDM MDM MDM Narrative Medical decision making narrative: Patient is a 19-year-old male who presents to the emergency department chief complaint of syncope. On the differential diagnosis includes but not limited to orthostatic vasovagal syncope, cardiac arrhythmia, electrolyte abnormality. Once workup is obtained and reviewed he will be reevaluated. Patient be given IV fluids Reglan and gram of Tylenol. Patient's CBC reviewed and showed a white blood count of 7.6, hemoglobin 14.8, plate count 204. Patient sodium normal 136, potassium normal 3.5, creatinine was 1.04. Patient troponin was less than 6 with a delta troponin of less than 6 EKG showed sinus rhythm with a rate of 77 bpm. Normal 156. Patient's chest x-ray was reviewed which showed no acute findings this was reviewed by myself and by radiology. Orthostatic vital signs were positive. On reevaluation the patient he is feeling much better after IV fluid hydration and would like to go home at this point time. He is advised to continue supportive care with pushing fluids and follow-up with his doctor in the outpatient setting. He is agreeable this plan all question concerns answered is discharged home in stable condition Lab Data Labs: Laboratory Results - last 24 hr 06/05/25 06/05/25 08:45 10:25 WBC 7.6 RBC 4.86 Hgb 14.8 Hct 41.6 MCV 85.6 MCH 30.5 MCHC 35.6 RDW Std Deviation 36.1 RDW Coeff of Amanda 11.7 Plt Count 204 MPV 10.1 Immature Gran % (Auto) 0.300 Neut % (Auto) 71.1 H Lymph % (Auto) 11.9 L Ross % (Auto) 15.9 H Eos % (Auto) 0.4 Baso % (Auto) 0.4 Absolute Neuts (auto) 5.4 Absolute Lymphs (auto) 0.91 Nucleated RBC % 0 Sodium 136 Potassium 3.5 Chloride 100 Carbon Dioxide 22.9 Anion Gap 13 BUN 10 Creatinine 1.04 Estim Creat Clear Calc 131.73 Est GFR (MDRD) Non-Af 105 BUN/Creatinine Ratio 9.8 L Glucose 94 Calcium 9.0 Troponin T High Sens < 6 Troponin T Hi Sens 2 Hr < 6 Radiography Diagnostic Testing: Clinical Impression(s) from Imaging Studies Chest X-Ray 06/05/25 08:35 IMPRESSION: No Acute Findings. Reading Location: [facility] Discharge Plan Triage Chief Complaint: Syncope ED Provider: Carlos Jose Dx/Rx/DC Orders Clinical Impression: Orthostatic syncope, Dehydration, Diarrhea Prescriptions: No Action NK Primary Care Provider: Justin Winkler Referrals: Justin Winkler DO [Primary Care Provider, Medical] Activity Restrictions/Additional Instructions: Follow-up with your doctor in outpatient setting. Push water, Gatorade, Pedialyte etc. Your blood work did not show any acute findings today. Return with worsening symptoms or any other concerns Print Language: Macedonian Disposition Disposition: Home, Self Care Discharge Date/Time: 06/05/25 12:21
--- NOTE | 2025-06-05 08:35 | RAD_ITS ---
PROCEDURE: CHEST 1 VIEW (PORTABLE) N/A REASON FOR EXAM: CHEST PAIN Several day history of shortness of breath. TECHNIQUE: Frontal view of the chest. COMPARISON: None FINDINGS: Hardware: None Heart: The heart size is normal. Lungs: The lungs are clear. Bones: The bones are unremarkable. RAD/Chest 1 View (Portable) IMPRESSION: No Acute Findings. Reading Location: [facility]
[2025-06-05] MEDS: 0.9% Normal Saline (1000mL) 1,000 ML 999 ML IV ×2 (08:47→09:57)
[2025-06-05 08:56] VITALS: BP 107/59; BP 110/62; BP 122/61; PULSE 80; PULSE 83; PULSE 92
[2025-06-05 08:59] LABS: Hematocrit 41.6 % (40-54); Hemoglobin 14.8 g/dL (13.0-16.5); Immature Granulocytes Count 0.020 X10^3/uL (0.0-0.0); Mean Corp Hgb Conc 35.6 g/dL (32-36); Mean Corpuscular Volume 85.6 fL (80-94); Mean Platelet Vol. 10.1 fl (6.2-12.0); NRBC Flagged by Analyzer 0 % (0-5); Platelet Count 204 K/mm3 (150-450); RBC Distribution Width CV 11.7 % (11.6-14.6); RBC Distribution Width SD 36.1 fl (35.1-43.9); Red Blood Count 4.86 M/mm3 (4.6-6.2); White Blood Count 7.6 K/mm3 (4.4-11.0)
[2025-06-05 09:31] LABS: Anion Gap 13 (5-15); BUN 10 mg/dL (4-19); BUN/Creat Ratio 9.8 RATIO (10-20); Calcium,Total 9.0 mg/dL (7.6-11.0); Carbon Dioxide 22.9 mmol/L (21.0-32.0); Chloride 100 mmol/L (98-108); Estimated Creatinine Clearance 131.73 ml/min (50-250); Glucose 94 mg/dL (70-99); Potassium 3.5 mmol/L (3.3-5.1); Troponin T High Sensitivity < 6 ng/L (<=22)
[2025-06-05 10:24] VITALS: BP 105/63; PULSE 79; RESP 16; O2SAT 99
[2025-06-05 11:46] LABS: Troponin T High Sens 2 HR < 6 ng/L (<=22)
[2025-06-05 11:55] VITALS: BP 105/63; PULSE 79; RESP 16; TEMP 36.7; O2SAT 99
== END 2025-06-05 12:21 | disposition home or self-care (01) ==
PROVIDERS: Emergency Provider Emergency Medicine; PCP Student in an Organized Health Care Education/Training Program; Visit Provider Emergency Medicine
DX: R55 Syncope and collapse (principal); E86.0 Dehydration; F17.290 Nicotine dependence, other tobacco product, uncomplicated; R19.7 Diarrhea, unspecified
CPT/HCPCS: 71045; 80048; 84484; 85025; 93005; 96361; 96374; 99285; A4216